=== PATIENT | female | born 1975 | race Caucasian/White ===

== ENCOUNTER → 2018-09-09 14:15 | Outpatient (CLI) | payer MEDICAID, SELFPAY ==
--- NOTE | 2018-09-09 11:30 | EMB_PTH ---
PATIENT: SCOTTIE CHOUDHARY LOC: [facility] U#:[id number] AGE/SX: 50/F ROOM: RE09/09/[address]: Dr. Corina Lott MD : 1975 BED: DIS: SPEC #: [id number] RECD: 09/09/18 14:37 STATUS: EVANGELINA RELoren #: [id number] PAULIE: 09/09/18 11:[address]: Corina Castellanos DEPT: SURGICAL PATHOLOGY RECD BY: Joel Han ENTERED: 09/09/18 14:37 SP TYPE: ENDOM BX/C KATERINA DR: Dr. Nataliia Goldstein MD Tissues: Endometrium, NOS Procedures: Surgery Specimen Level IV HEADER OPERATION: Endometrial biopsy PRE-OP DIAGNOSIS: N92.1; LMP 09/03/18 TISSUE SUBMITTED: Endometrial biopsy MICROSCOPIC DIAGNOSIS Endometrium, biopsy: Secretory endometrium. AM:faustino 09/10/18 MICROSCOPIC DESCRIPTION Slides are reviewed. GROSS DESCRIPTION Received is one container labeled with the patient's name and not further designated. The specimen consists of multiple irregular fragments of pink-velásquez soft tissue that in aggregate measure 2.5 x 2 x 0.2 cm. The specimen is totally submitted in one cassette. / AM:faustino 09/09/18 TC:5 CPT: 51134
[2018-09-12 11:13] LABS: HPV APTIMA, High Risk Negative (Negative)
--- OUTSIDE RECORDS SUMMARY | 2018-11-11 19:57 | XMS RPT_ITS | Summary of Care ---
:1975 Author Organization [facility] Address [address] [place] [address] Phone Care Team Providers Name Role Phone Nataliia Goldstein MD Primary Care Provider Unavailable Reason for Referral Medication Prior Authorization (Routine) Status Reason Specialty Diagnoses / Referred By Referred To Procedures Contact Contact Pending Review Yonas Lee MD [address] [phone] Transfer of Care (Routine) Status Reason Specialty Diagnoses / Referred By Referred To Procedures Contact Contact New Request Physical Therapy Diagnoses Irritable bowel syndrome with constipation Iron deficiency anemia, unspecified iron deficiency anemia type Yonas Lee MD [address] [phone] Scheduling Instructions [facility] [address] [facility], [address]nd [place] [address] Fax [facility] (Neck and Back Therapy) [address] [place] [address] FAX [facility] [address] [phone] FAX [facility] [address] [address] FAX [facility] [address] [place] [address] FAX [facility] [address] [address] FAX [facility] [address] [place], [place] [address] FAX [facility] [address] [place], [place] [address] FAX Radiology (Routine) Status Reason Specialty Diagnoses / Referred By Referred To Procedures Contact Contact New Request Diagnoses Irritable bowel syndrome with constipation Iron deficiency anemia, unspecified iron deficiency anemia type Jesus, Procedures CASE REQUEST - ENDOSCOPY MD Yonas [address] [place] [address] Reason for Visit Reason Comments New Patient anemia , chronic GI sx's Consultation (Routine) Status Reason Specialty Diagnoses / Procedures Referred By Contact Referred To Contact Closed Diagnoses Iron deficiency anemia, unspecified iron deficiency anemia type Irritable bowel syndrome with constipation Nataliia Goldstein System, Provider MD Not In [address] [place] [address] Encounter Details Date Type Department Care Team Description 09/02/2018 Office Visit Division of Jesus, Irritable bowel syndrome with constipation (Primary Dx); Gastroenterology and MD Yonas Iron deficiency anemia, unspecified iron deficiency anemia type Hepatology Upper [address] [facility] 3rd Floor [address] [place] [address] [address] [place] [address] Allergies No Known Allergiesas of this encounter Medications Prescription Sig. Disp. Refills Start Date End Date Status docusate (COLACE) 100 Take 1 capsule 100 capsule 11 12/10/2017 Active MG Cap by mouth 3 capsuleIndications: times daily as Irritable bowel needed. syndrome with constipation polyethylene glycol Take 17 g by 1 Bottle 11 12/10/2017 Active (MIRALAX) Powder mouth daily as powderIndications: needed. Irritable bowel syndrome with constipation Cholecalciferol 1 po one day a 5 capsule 11 12/16/2017 Active (MAXIMUM D3) 59737 week units CapIndications: Vitamin D deficiency ferrous sulfate 325 Take 325 mg by Active (65 Fe) MG Tab tablet mouth 3 times daily with meals. diclofenac EC 75 MG 1 po bid PRN 60 tablet 11 01/07/[address] tabletIndications: Pulmonary nodule, Vitamin D deficiency, Dorsalgia, Bilateral foot pain, Chronic pain of both shoulders, Tendonitis of both rotator cuffs, Osteoarthritis of both feet, unspecified osteoarthritis type, Spasm of thoracic back muscle, Bilateral calcaneal spurs, Leukopenia, unspecified type, Anemia, unspecified type, [facility] current use of non-steroidal anti-inflammatories (NSAID), Lung nodule Plecanatide (TRULANCE) Take 1 tablet 14 tablet 3 09/02/2018 09/16/2018 Active 3 MG Tab by mouth daily for 14 days. as of this encounter Active Problems Problem Noted Date Vitamin D deficiency 01/07/2018 Leukopenia 01/07/2018 Spasm of thoracic back muscle 01/07/2018 Pulmonary nodule 01/07/2018 Bilateral calcaneal spurs 01/07/2018 Bilateral foot pain 01/07/2018 Fatigue 12/16/2017 Disorder of bone and cartilage 12/16/2017 [facility] current use of non-steroidal anti-inflammatories (NSAID) 12/16/2017 Dorsalgia 12/16/2017 Chronic pain of both shoulders 12/16/2017 Tendonitis of both rotator cuffs 12/16/2017 Osteoarthritis of both feet 12/16/2017 Anemia 10/14/2017 Anxiety 10/14/2017 Insomnia 10/14/2017 Joint pain 10/14/2017 Social History Tobacco Use Types Packs/Day Years Used Date Never Smoker Smokeless Tobacco: Never Used Alcohol Use Drinks/Week oz/Week Comments No Sex Assigned at Date Recorded Not on file as of this encounter Last Filed Vital Signs Vital Sign Reading Time Taken Blood Pressure 94/64 09/02/2018 8:14 AM EST Pulse 71 09/02/2018 8:14 AM EST Temperature - - Respiratory Rate - - Oxygen Saturation 99% 09/02/2018 8:14 AM EST Inhaled Oxygen Concentration - - Weight 69 kg (152 lb 3.2 oz) 09/02/2018 8:14 AM EST Height 170.2 cm (5' 7) 09/02/2018 8:14 AM EST Body Mass Index 23.84 09/02/2018 8:14 AM EST in this encounter Functional Status Functional Status Response Date of Assessment Are you deaf or do you have serious difficulty hearing? No 01/07/2018 Are you blind or do you have serious difficulty seeing, No 01/07/2018 even when wearing glasses? Do you have serious difficulty walking or climbing stairs Yes 01/07/2018 (5 years or older)? Do you have difficulty dressing or bathing (5 yrs or No 01/07/2018 older)? Because of a physical, mental, or emotional condition, do No 01/07/2018 you have difficulty doing errands alone such as visiting a doctor's office or shopping (5 yrs or older)? Cognitive Status Response Date of Assessment Because of a physical, mental, or emotional condition, do No 01/07/2018 you have serious difficulty concentrating, remembering, or making decisions (5 yrs or older)? as of this encounter Instructions Patient Instructions - Yonas Lee MD - 09/02/2018 8:54 AM EST [email or web address] in this encounter Progress Notes Yonas Lee MD - 09/02/2018 8:00 AM ESTFormatting of this note may be different from the original. Division of Gastroenterology, Hepatology and Nutrition Referring provider: Nataliia Goldstein MD PCP: Nataliia Goldstein Date of visit: 09/02/18 [facility] Reason for visit: CHAVEZ, IBS Lyla Bradley is a very pleasant 43 y.o. year old female here to establish care. She is accompanied by her . She has a long standing history of constipation, bloating, diarrhea for many years. Seen @[facility] in the past, no further workup done, no colonoscopy, no EGD. Was diagnosed with IBS. Linze ssSince then symptoms have worsened. Tried different types of food without real improvement. Early satiety. Fullness, unable to pass gas. Bowel habits: Can go without a bowel movement for days, then times days with regular bowel movements. During time of menses symptoms are worse. Now found to be anemic. On iron therapy now. Regular diet at this point. Heavy menses for the last 4years, has 2 children, not seen an OBGYN for some time. Had colonoscopy/EGD in 1998, which was normal. Her GI issues are affecting her private, social and professional life. Lost about 20-30 lbs. Painfulintercourse, affects their love life. FH: No CRC, PDAV, GC SH: Tob - neg ETOH - neg PAST MEDICAL HISTORY PMH: Past Medical History: Diagnosis Date ??? Anemia ??? Insomnia ??? Pulmonary nodule PSH: Past Surgical History: Procedure Laterality Date ??? WISDOM TEETH EXTRACTION Allergies: She has No Known Allergies. Medications: Current Outpatient Prescriptions Medication Sig ??? Cholecalciferol (MAXIMUM D3) 67429 units Cap 1 po one day a week ??? diclofenac EC [address] tablet 1 po bid PRN ??? docusate (COLACE) 100 MG Cap capsule Take 1 capsule by mouth 3 times daily as needed. ??? ferrous sulfate 325 (65 Fe) MG Tab tablet Take 325 mg by mouth 3 times daily with meals. ??? polyethylene glycol (MIRALAX) Powder powder Take 17 g by mouth daily as needed. SOCIAL AND FAMILY HISTORY Social History: She reports that she has never smoked. She has never used smokeless tobacco. She reports that she does not drink alcohol or use drugs. Family History: Her family history includes Cancer- Other in her father; No known problems in her brother, brother, and mother. REVIEW OF SYSTEMS Negative for unintentional weight loss, skin rash, joint aches. PHYSICAL EXAM: A female child development consultant for the physical examination was offered to the patient but patient declined. Wt Readings from Last 10 Encounters: 04/24/18 68 kg (150 lb) 01/28/18 67.5 kg (148 lb 12.8 oz) 01/07/18 66.2 kg (146 lb) 01/02/18 66.7 kg (147 lb) 12/16/17 67.5 kg (148 lb 12.8 oz) 12/10/17 67 kg (147 lb 9.6 oz) 10/15/17 67.1 kg (148 lb) 10/14/17 60.1 kg (132 lb 6.4 oz) Vital Signs: There were no vitals taken for this visit. General: The patient is a 43 y.o. female in NAD HEENT: no scleral icterus, oral pharynx clear without exudate, MMM Lungs: CTAB, no respiratory distress Heart: RRR Abdomen: Soft, nontender, NABS Extremities: Warm and dry, well perfused Neuro: grossly intact, alert and oriented Psych: Appropriate affect, pleasant ASSESSMENT/MEDICAL DECISION MAKING/RECOMMENDATIONS Assessment/Plan: 43 y.o. female presenting with: IMPRESSION: 1. IBS-C 2. CHAVEZ IBS-C - this is most likely the working diagnosis but given new onset of CHAVEZ, I would favor to further evaluate via EGD/COLONOSCOPY at which point we will evaluate for celiac disease even though she had negative TTG back in 2013, H.pylori, IBD. In addition, would like to start her on scheduled Miralax, Metamucil and trial of newer motility agents, e.g. Trulance (she was on Linzess in the past withoutmuch improvement). I think she would also benefit from evaluation at our pelvic floor clinic. Next step would be: Amitriptyline Anorectal manometry CHAVEZ - will await endoscopic evaluation; also recommend OBGYN evaluation; unless true CHAVEZ and no OBGYN source, no capsule endoscopy needed. Yonas Lee MD [facility], 09/02/18 CC: Nataliia Goldstein [address] [place] [phone] in this encounter Plan of Treatment Upcoming Encounters Date Type Specialty Care Team Description 12/02/2018 Office Visit Gastroenterology Yonas Lee MD [address] [place] [address] Scheduled Tests Name Priority Associated Diagnoses Order Schedule XR COLON TRANSIT STUDY Routine Irritable bowel syndrome Expected: 09/02/2018, with constipation Expires: 09/02/2019 Iron deficiency anemia, unspecified iron deficiency anemia type Scheduled Referrals Name Priority Associated Diagnoses Order Schedule AMB REFERRAL TO PHYSICAL Routine Irritable bowel syndrome with Ordered: 09/02/2018 THERAPY constipation Iron deficiency anemia, unspecified iron deficiency anemia type Health Maintenance Due Date Last Done Comments HIV SCREENING DISCUSSION 1987 TETANUS 01/03/1992 TDAP (ADULT) 1993 LIPID SCREENING 2014 PAP SMEAR DISCUSSION 03/09/2015 03/09/2014 MAMMOGRAM SCREENING DISCUSSION 03/10/2015 03/10/2014 INFLUENZA VACCINE (#1) 2018 as of this encounter Procedures Procedure Name Priority Date/Time Associated Diagnosis Comments CASE REQUEST - Routine 09/02/2018 8:53 AM Irritable bowel ENDOSCOPY EST syndrome with constipation Iron deficiency anemia, unspecified iron deficiency anemia type in this encounter Results TSH (09/02/2018 9:13 AM) TSH, HIGH-SENSITIVITY 3.088 0.550 - 4.780 uIU/mL LAB, [facility] Performing Organization Address [facility] Phone Number LAB, [facility], [address] [place] [address] FERRITIN (09/02/2018 9:13 AM) FERRITIN 10 10 - 291 ng/mL [facility], [facility] Performing Organization Address [facility] Phone Number LAB, [facility], [address] [place] [address] IRON/IRON BINDING/TRANSFERRIN (09/02/2018 9:13 AM) IRON 77 40 - 174 mcg/dL [facility], [facility] TOTAL IRON BINDING 542 298 - 596 mcg/dL [facility] IRON SATURATION 14 (L) 20 - 55 % [facility], [facility] TRANSFERRIN 364 200 - 400 mg/dL LAB, [facility] Performing Organization Address City/[facility] Phone Number LAB, [facility], [address] [place] [address] CBC, EDIF, PLATELET (09/02/2018 9:13 AM) WBC (WHITE BLOOD COUNT) 4.63 3.99 - 11.19 K/uL [facility] RBC 4.39 3.91 - 5.04 M/uL [facility] HEMOGLOBIN (HGB) 13.4 11.4 - 15.2 g/dL [facility], [facility] HEMATOCRIT (HCT) 40.1 34.9 - 44.3 % [facility], [facility] MEAN CELL VOLUME 91.3 79.6 - 97.7 fL LAB, [facility] Mean Cell HGB 30.5 25.9 - 33.9 pg LAB, [facility] MEAN CELL HGB CONCENTRATION 33.4 31.4 - 35.9 g/dL LAB, [facility] RBC DISTRIBUTION 13.3 10.8 - 14.9 % LAB[facility] PLATELET COUNT 248 150 - 393 K/uL LAB, [facility] MEAN PLATELET VOLUME 10.0 8.5 - 12.2 fL LAB, [facility] RBC, NUCLEATED 0.0 0.0 - 0.2 /100 WBC LAB, [facility] DIFFERENTIAL TYPE Electronic Differential LAB, [facility] IMMATURE GRANS% 0.2 % [facility] NEUTROPHIL SEGMENTED 59.5 % [facility] LYMPHOCYTES 31.5 % [facility] MONOCYTE 7.1 % [facility] EOSINOPHIL 1.5 % [facility] BASOPHIL 0.2 % [facility] IMMATURE GRANS ABSOLUTE <0.04 0.00 - 0.08 K/uL LAB, [facility] SEGS + Bands, Absolute 2.75 1.64 - 7.28 K/uL [facility] LYMPHOCYTES, ABSOLUTE 1.46 1.16 - 3.51 K/uL LAB[facility] MONOCYTES, ABSOLUTE 0.33 0.22 - 0.87 K/uL LAB, [facility] EOSINOPHILS, ABSOLUTE 0.07 0.00 - 0.42 K/uL LAB, [facility] BASOPHILS, ABSOLUTE <0.04 0.00 - 0.15 K/uL LAB, [facility] Performing Organization Address City/State/Zipcode Phone Number LAB, [facility], [address] [place] [address] in this encounter Visit Diagnoses Diagnosis Irritable bowel syndrome with constipation - Primary Irritable bowel syndrome Iron deficiency anemia, unspecified iron deficiency anemia type
--- OUTSIDE RECORDS SUMMARY | 2018-11-11 19:57 | XMS RPT_ITS | Summary of Care ---
:1975 Author Organization [facility] Address [address] [place] [address] Phone Care Team Providers Name Role Phone Nataliia Goldstein MD Primary Care Provider Unavailable Encounter Details Date Type Department Care Team Description 09/02/2018 Letter (Out) [facility] [address] [place] [address] Allergies No Known Allergiesas of this encounter [...] 5 capsule 11 12/16/2017 Active (MAXIMUM D3) 24816 week units CapIndications: Vitamin D deficiency ferrous sulfate 325 Take 325 mg by Active (65 Fe) MG Tab tablet mouth 3 times daily with meals. 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 as of this encounter Plan of Treatment Upcoming Encounters Date Type Specialty Care Team Description 12/02/2018 Office Visit Gastroenterology Yonas Lee MD [address] [place], [place] [address] [place] [address] Health Maintenance Due Date Last Done Comments HIV SCREENING DISCUSSION 1987 TETANUS 01/03/1992 TDAP (ADULT) 1993 LIPID SCREENING 2014 PAP SMEAR DISCUSSION 03/09/2015 03/09/2014 MAMMOGRAM SCREENING DISCUSSION 03/10/2015 03/10/2014 INFLUENZA VACCINE (#1) 2018 as of this encounter
--- OUTSIDE RECORDS SUMMARY | 2018-11-11 19:57 | XMS RPT_ITS | Summary of Care ---
:1975 Author Organization [facility] Address [address] [place] [address] Care Team Providers Name Role Phone Nataliia Goldstein MD Primary Care Provider Reason for Referral Evaluate and Treat (Routine) Status Reason Specialty Diagnoses / Referred By Referred To Procedures Contact Contact Closed Otolaryngology Diagnoses Nonspecific abnormal results of thyroid function study Matt Miller Mykola Grant Jr., DO Ofelia MD [address] [place] [address] Phone: [place], [place] [phone] Reason for Visit Reason Comments Thyroid Problem ct showed abnormal thyroid Evaluate and Treat (Routine) Status Reason Specialty Diagnoses / Referred By Referred To Procedures Contact Contact Closed Otolaryngology Diagnoses Nonspecific abnormal results of thyroid function study Matt Miller Mykola Grant Jr., DO Olekseyovich, MD [address] [address] Phone: [place], [place] [phone] Encounter Details Date Type Department Care Team Description 04/25/2018 Office Visit [facility] Ear, Nose Matt Miller Jr., DO [address] [place] [address] [phone] Multinodular goiter (nontoxic) (Primary Dx); and [facility] Juan José Tovar MD [address] [place] [address] [phone] Nonspecific abnormal results of thyroid function study; [address] Sore throat; Medical [place] [address] Allergies No Known Allergiesas of this encounter Medications Prescription Sig. Disp. Refills Start Date End Date Status docusate sodium Take 100 mg by Active (COLACE) 100 MG mouth 3 (three) capsule times a day as needed for constipation. ferrous gluconate Take 324 mg by Active (FERGON) 324 MG mouth daily with tablet breakfast. omeprazole (PRILOSEC) Take 1 (one) 30 capsule 5 04/25/2018 05/25/2018 Active 40 MG capsule (40 mg capsuleIndications: total) by mouth Sore throat, daily. Dysphasia ranitidine (ZANTAC) Take 1 (one) 30 tablet 5 04/25/2018 04/25/2019 Active 150 MG tablet (150 mg tabletIndications: total) by mouth Sore throat, nightly. Dysphasia as of this encounter Social History Tobacco Use Types Packs/Day Years Used Date Never Smoker Smokeless Tobacco: Never Used Alcohol Use Drinks/Week oz/Week Comments No Sex Assigned at Date Recorded Not on file as of this encounter Last Filed Vital Signs Vital Sign Reading Time Taken Blood Pressure 110/72 04/25/2018 9:06 AM EDT Pulse 75 04/25/2018 9:06 AM EDT Temperature - - Respiratory Rate - - Oxygen Saturation 98% 04/25/2018 9:06 AM EDT Inhaled Oxygen Concentration - - Weight 68.4 kg (150 lb 11.2 oz) 04/25/2018 9:06 AM EDT Height - - Body Mass Index - - in this encounter Instructions Patient Instructions - Juan José Tovar MD - 04/25/2018 10:06 AM EDTFormatting of this note may be different from the original. Thyroid Nodules: Care Instructions Your Care Instructions Thyroid nodules are growths or lumps in the thyroid gland. Your thyroid is in the front of your neck. It controls how your body uses energy. You may have tests to see if the nodule is caused by cancer. Most nodules aren't cancer and don't cause problems. Many don't even need treatment. If you do have cancer, it can usually be cured. Treatment will probably include surgery. You may also get radioactive iodine treatment. If your thyroid can't make thyroid hormone after treatment, you can take a pill every day to replace the hormone. Follow-up care is a garcia part of your treatment and safety. Be sure to make and go to all appointments, and call your doctor if you are having problems. It's also a good idea to know your test results and keep a list of the medicines you take. How can you care for yourself at home? ?? Be safe with medicines. If you take thyroid hormone medicine: ?? Take it exactly as prescribed. Call your doctor if you think you are having a problem with your medicine. If you take the right amount and don't skip doses, you probably won't have side effects. ?? Do not take it with calcium, vitamins, or iron. ?? Try not to miss a dose. ?? Do not take extra doses. This will not help you get better any faster. It may also cause side effects. ?? Tell your doctor about any medicines you take. This includes rqnk-mtq-pqxglyo medicines. ?? Wear a medical alert bracelet or necklace that says you take thyroid hormones. You can buy these at most drugstores. When should you call for help? Call 911 anytime you think you may need emergency care. For example, call if: ? ?? You lose consciousness. ?Call your doctor now or seek immediate medical care if: ? ?? You have shortness of breath. ?Watch closely for changes in your health, and be sure to contact your doctor if: ? ?? You have pain in your neck, jaw, or ear. ? ?? You have problems swallowing. ? ?? You feel weak and tired. ? ?? You have nervousness, a fast heartbeat, hand tremors, problems sleeping, increased sweating, and weight loss. ? ?? You do not feel better even though you are taking your medicine. Where can you learn more? Log into your personal health record on https://[employer] and enter E753 in the Education box to learn more about Thyroid Nodules: Care Instructions. Current as of: February 07, 2017 Content Version: 11.6 ?? 2356-8493 [email or web address]. Care instructions adapted under license by your healthcare professional. If you have questions about a medical condition or this instruction, always ask your healthcare professional. [email or web address] disclaims any warranty or liability for your use of this information. Gastroesophageal Reflux Disease (GERD): Care Instructions Your Care Instructions Gastroesophageal reflux disease (GERD) is the backward flow of stomach acid into the esophagus. The esophagus is the tube that leads from your throat to your stomach. A one-way valve prevents the stomach acid from moving up into this tube. When you have GERD, this valve does not close tightly enough. If you have mild GERD symptoms including heartburn, you may be able to control the problem with antacids or gyvh-nwx-kfayxjo medicine. Changing your diet, losing weight, and making other lifestyle changes can also help reduce symptoms. Follow-up care is a garcia part of your treatment and safety. Be sure to make and go to all appointments, and call your doctor if you are having problems. It's also a good idea to know your test results and keep a list of the medicines you take. How can you care for yourself at home? ?? Take your medicines exactly as prescribed. Call your doctor if you think you are having a problemwith your medicine. ?? Your doctor may recommend meht-oyx-qufydka medicine. For mild or occasional indigestion, antacids, such as Tums, Gaviscon, Mylanta, or Maalox, may help. Your doctor also may recommend xnop-pzj-knclnvz acid reducers, such as Pepcid AC, Tagamet HB, Zantac 75, or Prilosec. Read and follow all instructions on the label. If you use these medicines often, talk with your doctor. ?? Change your eating habits. ?? It's best to eat several small meals instead of two or three large meals. ?? After you eat, wait 2 to 3 hours before you lie down. ?? Chocolate, mint, and alcohol can make GERD worse. ?? Spicy foods, foods that have a lot of acid (like tomatoes and oranges), and coffee can make GERD symptoms worse in some people. If your symptoms are worse after you eat a certain food, you may want to stop eating that food to see if your symptoms get better. ?? Do not smoke or chew tobacco. Smoking can make GERD worse. If you need help quitting, talk to your doctor about stop-smoking programs and medicines. These can increase your chances of quitting for good. ?? If you have GERD symptoms at night, raise the head of your bed 6 to 8 inches by putting the frameon blocks or placing a foam wedge under the head of your mattress. (Adding extra pillows does not work.) ?? Do not wear tight clothing around your middle. ?? Lose weight if you need to. Losing just 5 to 10 pounds can help. When should you call for help? Call your doctor now or seek immediate medical care if: ? ?? You have new or different belly pain. ? ?? Your stools are black and tarlike or have streaks of blood. ?Watch closely for changes in your health, and be sure to contact your doctor if: ? ?? Your symptoms have not improved after 2 days. ? ?? Food seems to catch in your throat or chest. Where can you learn more? Log into your personal health record on https://[employer] and enter T927 in the Education box to learn more about Gastroesophageal Reflux Disease (GERD): Care Instructions. Current as of: December 28, 2016 Content Version: 11.6 ?? [id number] [employer]. Care instructions adapted under license by your healthcare professional. If you have questions about a medical condition or this instruction, always ask your healthcare professional. [employer] disclaims any warranty or liability for your use of this information. in this encounter Progress Notes Juan José Tovar MD - 04/25/2018 10:07 AM EDTFormatting of this note may be different from the original. Subjective: Patient ID: Lyla Bradley is a 43 y.o. female. Chief Complaint Patient presents with ??? Thyroid Problem ct showed abnormal thyroid HPI kind referral for my evaluation due to incidental finding of thyroid abnormal images. Reportedly, patient had CT scan of the shoulders which had detected multiple thyroid nodules in the right thyroid lobe. My consultation was requested. Patient denies associated shortness of breath, cough, hemoptysis but describes this pain deep in the throat on the ipsilateral with thyroid nodules area, getting worse with speaking not associated with significant difficulties to swallow but certain amount of discomfort upon swallowing is also present. Patient denies associated weight loss or constitutional symptoms. She is not aware about any family history of head and neck and specifically thyroid canceror problems. Patient had no low dose radiation exposure. Patient had 2 pregnancies and admits to some typical worsening of the heartburns during the but is currently not on any medications for GERD. The following portions of the patient's history were reviewed and updated as appropriate: allergies,current medications, past family history, past medical history, past social history, past surgical history and problem list. Review of Systems Constitutional: Negative. Negative for activity change, appetite change, chills, diaphoresis, fatigue, fever and unexpected weight change. HENT: Positive for sore throat, trouble swallowing and voice change. Negative for congestion, dentalproblem, drooling, ear discharge, ear pain, facial swelling, hearing loss, mouth sores, nosebleeds, postnasal drip, rhinorrhea, sinus pain, sinus pressure, sneezing and tinnitus. Eyes: Negative. Negative for photophobia, pain, discharge, redness, itching and visual disturbance. Respiratory: Negative. Negative for apnea, cough, choking, chest tightness, shortness of breath, wheezing and stridor. Cardiovascular: Negative. Negative for chest pain, palpitations and leg swelling. Gastrointestinal: Negative. Negative for abdominal distention, abdominal pain, anal bleeding, bloodin stool, constipation, diarrhea, nausea and rectal pain. Endocrine: Negative for cold intolerance and heat intolerance. Genitourinary: Negative. Musculoskeletal: Negative. Negative for arthralgias, gait problem, neck pain and neck stiffness. Skin: Negative. Negative for color change, pallor, rash and wound. Allergic/Immunologic: Negative for environmental allergies, food allergies and immunocompromised state. Neurological: Negative for dizziness, tremors, seizures, syncope, facial asymmetry, speech difficulty, weakness, light-headedness, numbness and headaches. Hematological: Negative for adenopathy. Does not bruise/bleed easily. Psychiatric/Behavioral: Negative. Objective: BP 110/72 Pulse 75 Wt 68.4 kg (150 lb 11.2 oz) SpO2 98% Physical Exam Constitutional: She is oriented to person, place, and time. She appears well- developed and well-nourished. No distress. HENT: Head: Normocephalic and atraumatic. Head is without abrasion, without contusion and without laceration. Right Ear: Tympanic membrane, external ear and ear canal normal. No drainage, swelling or tenderness. No mastoid tenderness. Tympanic membrane is not perforated. Tympanic membrane mobility is normal. No middle ear effusion. No decreased hearing is noted. Left Ear: Tympanic membrane and external ear normal. No drainage, swelling or tenderness. No mastoidtenderness. Tympanic membrane is not perforated. Tympanic membrane mobility is normal. No middle ear effusion. No decreased hearing is noted. Nose: No mucosal edema, rhinorrhea, nose lacerations, sinus tenderness, nasal deformity, septal deviation or nasal septal hematoma. No epistaxis. No foreign bodies. Right sinus exhibits no maxillary sinus tenderness and no frontal sinus tenderness. Left sinus exhibits no maxillary sinus tenderness and no frontal sinus tenderness. Mouth/Throat: Uvula is midline, oropharynx is clear and moist and mucous membranes are normal. She does not have dentures. No oral lesions. No trismus in the jaw. Normal dentition. No dental abscesses,uvula swelling, lacerations or dental caries. No oropharyngeal exudate, posterior oropharyngeal edema, posterior oropharyngeal erythema or tonsillar abscesses. Eyes: Pupils are equal, round, and reactive to light. Conjunctivae and EOM are normal. Right eye exhibits no discharge. Left eye exhibits no discharge. No scleral icterus. Neck: Trachea normal, normal range of motion and phonation normal. Neck supple. No JVD present. No tracheal deviation present. Thyroid mass and thyromegaly present. Cardiovascular: Normal rate, regular rhythm, normal heart sounds and intact distal pulses. Pulmonary/Chest: No stridor. No respiratory distress. She has no wheezes. She has no rales. She exhibits no tenderness. Abdominal: Soft. Bowel sounds are normal. She exhibits no distension. There is no tenderness. Musculoskeletal: Normal range of motion. Lymphadenopathy: She has no cervical adenopathy. Right cervical: No superficial cervical, no deep cervical and no posterior cervical adenopathy present. Left cervical: No superficial cervical, no deep cervical and no posterior cervical adenopathy present. Neurological: She is alert and oriented to person, place, and time. No cranial nerve deficit. Coordination normal. Skin: Skin is warm and dry. No rash noted. She is not diaphoretic. No erythema. Psychiatric: She has a normal mood and affect. Her behavior is normal. Judgment and thought content normal. Assessment/Plan: Focused but thorough clinical examination today confirmed palpable multi nodularityin the right thyroid lobe, normal thyroid function tests and the CT scan images consistent with described abnormality. I had ordered thyroid ultrasound to delineate the structure and size of the CT scan described and noticeable right thyroid lobe nodules. Patient also demonstrates symptoms which arerather associated with GERD and therefore instructions and prescriptions for Prilosec 40 mg to be taken p.o. on empty stomach in the morning and Zantac 150 mg p.o. to be taken at night as the diagnostic trial were provided. All patient's questions were answered appropriately to the level of her satisfaction. She had expressed comprehensive understanding and will follow up with me for evaluation with office-based endoscopy in [address](R) 1. Multinodular goiter (nontoxic) NON-TOXIC MULTINODULAR GOITER 2. Nonspecific abnormal results of thyroid function study THYROID FUNCTION TESTS ABNORMAL Ambulatory referral to ENT 3. Sore throat SORE THROAT SYMPTOM 4. Dysphasia DYSPHASIA No orders of the defined types were placed in this encounter. in this encounter Plan of Treatment Upcoming Encounters Date Type Specialty Care Team Description 06/02/2018 Office Visit Otolaryngology Juan José Tovar MD [address] [facility] [address] [place] [id number] Health Maintenance Due Date Last Done Comments PAP SMEAR 1975 TETANUS EVERY 10 YR 1975 SEQUENTIAL INFLUENZA VACCINE (#1) 2018 as of this encounter Visit Diagnoses Diagnosis Multinodular goiter (nontoxic) - Primary Nontoxic multinodular goiter Nonspecific abnormal results of thyroid function study Sore throat Acute pharyngitis Dysphasia Other speech disturbance
--- OUTSIDE RECORDS SUMMARY | 2018-11-11 19:57 | XMS RPT_ITS | Summary of Care ---
:1975 Author Organization [facility] Address [address] [place] [address] Care Team Providers Name Role Phone Nataliia Goldstein MD Primary Care Provider Encounter Details Date Type Department Care Team Description 05/03/2018 Hospital Encounter [facility] Juan José Tovar MD [place], [place] [address] [phone] [facility] [place] [facility] [address] [place], [place] [id number] Allergies No Known Allergiesas of this encounter [...] Not on file as of this encounter Plan of Treatment Upcoming Encounters Date Type Specialty Care Team Description 06/02/2018 Office Visit Otolaryngology Juan José Tovar MD [address] [facility] [place] [address] [place], [place] [id number] Health Maintenance Due Date Last Done Comments PAP SMEAR 1975 TETANUS EVERY 10 YR 1975 SEQUENTIAL INFLUENZA VACCINE (#1) 2018 as of this encounter
--- OUTSIDE RECORDS SUMMARY | 2018-11-11 19:58 | XMS RPT_ITS ---
:1975 Author Organization OHIP Care Team Providers Name Role Phone SHANNON RUDOLPH Attending Unavailable GOLDSTEIN, NOAH M Referring Unavailable GOLDSTEIN, NOAH M Primary Care Unavailable SHANNON RUDOLPH Attending Unavailable GLODSTEIN, NOAH M Referring Unavailable GOLDSTEIN, NOAH M Primary Care Unavailable Guy, Dr. Brady Fuentes Admitting Unavailable PrykhodkDr. Brady fuentes Attending Unavailable BRADY IBLLS Attending Unavailable MANA OLVERA Primary Care Unavailable MANA OLVERA Admitting Unavailable BRADY BILLS Attending Unavailable MANA OLVERA Referring Unavailable GOLDSTEIN, NOAHALEJANDRA MARSHALL Primary Care Unavailable GOLDSTEIN, NOAH M Attending Unavailable SELF, SELF Referring Unavailable GOLDSTEIN, NOAH M Attending Unavailable SELF, SELF Referring Unavailable WADE MCNEAL, MANA Attending Unavailable GOLDSTEIN, NOAH M Referring Unavailable WADE MCNEAL, MANA Attending Unavailable GOLDSTEIN, NOAH M Referring Unavailable VINICIOBROTY MCNEAL, MANA Attending Unavailable STAINBROOK JR., MANA Referring Unavailable STAINBROOK JR., MANA Attending Unavailable STAINBROOK JR., MANA Referring Unavailable STAINBROOK JR., MANA Attending Unavailable STAINBROOK JR., MANA Referring Unavailable STAINBROOK JR., MANA Attending Unavailable STAINBROOK JR., MANA Referring Unavailable STAINBROOK JR., MANA Attending Unavailable STAINBROOK JR., MANA Referring Unavailable GOLDSTEIN, NOAH M Attending Unavailable SELF, SELF Referring Unavailable STAINBROOK JR., MANA Attending Unavailable GOLDSTEIN, NOAH M Referring Unavailable MAYO OLIVA E Attending Unavailable STAINBROOK JR., MANA Referring Unavailable STAINBROOK JR., MANA Attending Unavailable STAINBROOK JR., MANA Referring Unavailable KARISHMA LOPEZ Attending Unavailable STAINBROOK JR., MANA Referring Unavailable Phipps-Oren, Summer Attending Unavailable Phipps-Oren, Summer Referring Unavailable Goldstein, Noah Primary Care Unavailable Phipps-Oren, Summer Attending Unavailable PROBLEMS PROBLEMS DATE TYPE CONDITION / CODE ATTENDING STATUS SOURCE Unknown N92.1 - Excessive Phipps-Oren, Active [facility] 9 and frequent [facility] menstruation with Hospital irregular cycle / Repository N92.1(ICD-10) Admitting New Patient / RONNI, Active [facility] 9 diagnosis [id number]() [facility] Repository Admitting Abnormal results of PRYKHODKO, BRADY Active [facility] 8 diagnosis thyroid function OLEKSEYOVIC Three studies / Repository R94.6(ICD-10) Admitting Pulmonary Nodule / KARISHMA LOPEZ Active [facility] 8 Diagnosis 252() [facility] [place] Admitting Consult / 119() KARISHMA LOPEZ [facility] 8 Diagnosis [place] Rep[place] Admitting Solitary pulmonary STAINBROOK JR., Active [facility] 8 Diagnosis nodule / [facility] [place] R91.1(ICD-10) Repository Admitting Pain in right foot / STAINBROOK JR., Active [facility] 8 Diagnosis M79.671(ICD-10) [facility] [place] Admitting Pain in left foot / STAINBROOK JR., Active [facility] 8 Diagnosis M79.672(ICD-10) [facility] [place] Admitting Calcaneal spur, STAINBROOK JR., Active [facility] 8 Diagnosis right foot / [facility] [place] M77.31(ICD-10) Repository Admitting Calcaneal spur, left STAINBROOK JR., Active [facility] 8 Diagnosis foot / [facility] [place] M77.32(ICD-10) Repository Admitting Muscle spasm of back STAINBROOK JR., Active [facility] 8 Diagnosis / M62.830(ICD-10) [facility] [place] Admitting Decreased white STAINBROOK JR., Active [facility] 8 Diagnosis blood cell count, [facility] [place] unspecified / Repository D72.819(ICD-10) Admitting Vitamin D STAINBROOK JR., Active [facility] 8 Diagnosis deficiency, [facility] [place] unspecified / Repository E55.9(ICD-10) Admitting Anemia, unspecified STAINBROOK JR., Active [facility] 8 Diagnosis / D64.9(ICD-10) [facility] [place] Admitting Joint Pain / STAINBROOK JR., Active [facility] 8 Diagnosis 582267() [facility] [place] Admitting Results / 95() NOAH GOLDSTEIN [employer] 8 Diagnosis [place] Rep[place] Admitting Anemia / [id number]() NOAH GOLDSTEIN [employer] 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[facility] ankle and foot / Repository M19.072(ICD-10) Admitting Other shoulder STAINBROOK JR., Active [facility] 8 Diagnosis lesions, right [facility] / Repository M75.81(ICD-10) Admitting Other shoulder STAINBROOK JR., Active [facility] 8 Diagnosis lesions, left [facility] [place] / Repository M75.82(ICD-10) Admitting Pain in right STAINBROOK JR., Active [facility] 8 Diagnosis shoulder / [facility] [place] M25.511(ICD-10) Repository Admitting Other chronic pain / STAINBROOK JR., Active [facility] 8 Diagnosis G89.29(ICD-10) [facility] [place] Admitting Pain in left STAINBROOK JR., Active [facility] 8 Diagnosis shoulder / [facility] [place] M25.512(ICD-10) Repository Admitting Dorsalgia, STAINBROOK JR., Active [facility] 8 Diagnosis unspecified / [facility] [place] M54.9(ICD-10) Repository Admitting manager terminal (current) STAINBROOK JR., Active [facility] 8 Diagnosis use of non-steroidal [facility] [place] anti-inflammatories Repository (nsaid) / Z79.1(ICD-10) Admitting Disorder of bone, STAINBROOK JR., Active [facility] 8 Diagnosis unspecified / [facility] [place] M89.9(ICD-10) Repository Admitting Disorder of STAINBROOK JR., Active [facility] 8 Diagnosis cartilage, [facility] [place] unspecified / Repository M94.9(ICD-10) Admitting Other fatigue / STAINBROOK JR., Active [facility] 8 Diagnosis R53.83(ICD-10) [facility] [place] Admitting Constipation / NOAH GOLDSTEIN Mirta Active [facility] 8 Diagnosis 068465() [place] Rep[place] Admitting Fatigue / 46() YANDY NOAH M [facility] [facility] 8 Diagnosis [place] Rep[place]mitting Musculoskeletal Pain YANDYNOAH Active [facility] 8 Diagnosis / [id number]() [place] Rep[place] PROCEDURES PROCEDURES No Procedure Records FoundRESULTS RESULTS PROGESTERONE LEVEL Collected: 09/11/2018 Status: F Source: [place] 4:06 PM [facility] [place] TYPE CODE TESTS RESULT OUT OF REFERENCE UNITS RANGE LAB L509.4001 See Comment ng/mL Progesterone Normal 5.81 Result Comment: Progesterone Reference Table: UNITS Female: Follicular 0.15 - 1.40 ng/mL Luteal 3.34 - 25.56 ng/mL Mid-luteal 4.44 - 28.03 ng/mL Postmenopausal 0.0 - 0.73 ng/mL : 1st Trimester 11.22 - 90.00 ng/mL 2nd Trimester 25.55 - 89.40 ng/mL 3rd Trimester 48.40 -422.50 ng/mL Performed By: #### L509.4001 #### [facility] [address] [place], [address] ENDOMETRIAL BX/CURETTINGS Observed: 09/09/2018 Status: F Source: [place] 11:30 AM [facility] [place] Patient: SCOTTIE CHOUDHARY : 1975 (43/F) Acct Num: [id number] Phys: Vicente OLIVAREZ,Summer Unit Num: [id number] Loc: LABSPEC Specimen: [id number] Received: 09/09/181436 Spec Type: ENDOM BX/C TISSUES 1 TISSUES: Endometrium, NOS GROSS DESCRIPTION Received is one container labeled with the patient's name and not further designated. The specimen consists of multiple irregular fragments of pink-velásquez soft tissue that in aggregate measure 2.5 x 2 x 0.2 cm. The specimen is totally submitted in one cassette. / AM:faustino 09/09/18 TC:5 CPT: 80466 HEADER OPERATION: Endometrial biopsy PRE-OP DIAGNOSIS: N92.1; LMP 09/03/18 TISSUE SUBMITTED: Endometrial biopsy MICROSCOPIC DESCRIPTION Slides are reviewed. MICROSCOPIC DIAGNOSIS Endometrium, biopsy: Secretory endometrium. AM:faustino 09/10/18 Signed Greyson Schwartz, 09/10/18 <signature on file> Performed By: #### PEMB #### [facility] [address] [place], [address] PAP IG HPV APTIMA Collected: 09/09/2018 Status: F Source: [place] ,45 11:10 AM [facility] [place] Order Comment: CYTOLOGY INFORMATION: - CLINICAL INFORMATION: - DATE LMP/MENOPAUSE: 08/24/18 - COLLECTION VIAL: Thin Prep Vial - VP AD SALES WEST SOURCE: CERVICAL/ENDOCERVICAL - COLLECTION TECHNIQUE: BRUSH/SPATULA Specimen Comment: [id number] Specimen Comment: Source.............Cervix;Endocervix Specimen Comment: LMP / Prev Treat...IFR=[id number] Specimen Comment: No. of containers..01 ThinPrep Vial TYPE CODE TESTS RESULT OUT OF RANGE REFERENCE UNITS LAB L7400.0800 . Normal DIAGN Comment Result Comment: NEGATIVE FOR INTRAEPITHELIAL LESION OR MALIGNANCY. LAB L7400.0900 . Normal ADEQ Comment Result Comment: Satisfactory for evaluation. Endocervical and/or squamous metaplastic cells (endocervical component) are present. LAB L7400.1400 . Normal PERFORM Comment Result Comment: Lavonne Osborne, Vacuum Extractor Operator (ASCP) LAB L7400.2575 . Normal TEST METHOD Comment Result Comment: This liquid based ThinPrep(R) pap test was screened with the use of an image guided system. LAB L7400.2600 . Normal . COMM LAB L7400.2700 . Normal PAPSMR Comment Result Comment: The Pap smear is a screening test designed to aid in the detection of premalignant and malignant conditions of the uterine cervix. It is not a diagnostic procedure and should not be used as the sole means of detecting cervical cancer. Both false-positive and false-negative reports do occur. LAB L7400.2760 Negative Normal HPV APTIMA, Negative HR Result Comment: This test detects fourteen high-risk HPV types (16/18/31/33/35/39/45/ 51/52/56/58/59/66/68) without differentiation. Performed at: - [facility] [id number] Open Developer Operator: Hannah Jack MD, Phone: [phone] Performed at: =[facility] [id number] Open Developer Operator: Hannah Jack MD, Phone: [phone] Performed By: #### L7400.0280 #### [facility] (refer to report for specific site) refer to report for address and phone number CBC,PLATELET,DIFFERENTIAL - CCL Collected: Status: F Source: [facility] 09/02/2018 9:13 AM [facility] REPOSITORY TYPE CODE TESTS RESULT OUT OF REFERENCE UNITS RANGE LAB WBC 3.99-11.19 K/uL WBC Count 4.63 LAB RBC 3.91-5.04 M/uL RBC Count 4.39 LAB HGB 11.4-15.2 g/dL Hemoglobin 13.4 LAB HCT 34.9-44.3 % Hematocrit 40.1 LAB MCV 79.6-97.7 fL Mean Cell 91.3 Volume LAB MCH 25.9-33.9 pg Mean Cell 30.5 Hgb LAB MCHC 31.4-35.9 g/dL Mean Cell 33.4 Hgb Conc LAB RDW 10.8-14.9 % RBC 13.3 Distribution LAB PLT 150-393 K/uL Platelet 248 Count LAB MPV 8.5-12.2 fL Mean 10.0 Platelet Volume LAB NRBC 0.0-0.2 /100 WBC NUCLEATED 0.0 RBC LAB DTYPE Electronic DIFFERENTIAL TYPE Differential LAB IGRE % IMMATURE 0.2 GRANS % LAB SEGS % NEUTROPHIL 59.5 SEGMENTED LAB LYM % LYMPHOCYTE 31.5 % LAB MON % MONOCYTE % 7.1 LAB EOS % *EOSINOPHIL 1.5 % LAB BASO % BASOPHIL % 0.2 LAB IGABS 0.00-0.08 K/uL IMMATURE <0.04 GRANS ABSOLUTE LAB SBANS 1.64-7.28 K/uL SEGS + 2.75 Bands,Absolute LAB ALYM 1.16-3.51 K/uL Abs Lymph 1.46 LAB AMONO 0.22-0.87 K/uL Abs Meigs 0.33 LAB AEOS 0.00-0.42 K/uL Abs Eos 0.07 LAB ABASO 0.00-0.15 K/uL Abs Baso <0.04 Performed By: #### CBCDFC, IRBC, FERIB, TSH #### [facility] [address] [place] [address] [address] [place] [address] IRON*TIBC (TRANSFERRIN) Collected: 09/02/2018 Status: F Source: [facility] 9:13 AM [facility] REPOSITORY TYPE CODE TESTS RESULT OUT OF REFERENCE UNITS RANGE LAB IRON 40-174 mcg/dL Iron 77 LAB TIBC 298-596 mcg/dL Total Iron Binding Capacity 542 LAB IRONS 20-55 % Low *Iron*Saturation 14 LAB HARDIN 200-400 mg/dL Transferrin 364 Performed By: #### CBCDFC, IRBC, FERIB, TSH #### [facility] [address] [place] [address] [facility] [address] [place] [address] FERRITIN Collected: 09/02/2018 Status: F Source: [facility] 9:13 AM [facility] REPOSITORY TYPE CODE TESTS RESULT OUT OF RANGE REFERENCE UNITS LAB FERI 10-291 ng/mL *Ferritin 10 Performed By: #### CBCDFC, IRBC, FERIB, TSH #### [facility] [address] [place] [id number] [place] [address] [address] [place] [address] TSH, HIGH SENSITIVITY Collected: 09/02/2018 Status: F Source: [facility] 9:13 AM [facility] REPOSITORY TYPE CODE TESTS RESULT OUT OF REFERENCE UNITS RANGE LAB TSH 0.550-4.780 uIU/mL TSH, High Sensitivity 3.088 Performed By: #### CBCDFC, IRBC, FERIB, TSH #### [facility] [address] [place] [id number] [place] [address] [address] [place] [address] US THYROID Observed: 05/03/2018 Status: F Source: [facility] 11:42 AM [facility] REPOSITORY Final Report Accession No: [id number] Performed: May 03 2018 11:42AM Examination: US THYROID EXAMINATION: US THYROID [id number] CLINICAL HISTORY: 43 -year-old female with history of GOITER NONTOXIC COMPARISON: None available. TECHNIQUE: Real-time multiplanar grayscale images of the thyroid bed were obtained. FINDINGS: Right thyroid lobe is 5.6 x 1.7 x 1.2 cm. The left thyroid lobe measures 5.6 x 1.7 x 1.8 cm. The thyroid isthmus measures 3 mm. There are multiple colloid cysts seen bilaterally. Dominant lesion of the right mid thyroid measures 0.9 x 0.6 x 0.7 cm with comet tail artifact. Additional dominant cystic lesion inferior right thyroid lobe measures 1.3 x 0.8 x 1 cm. Macrocalcifications as well as echogenic foci peripherally suggesting colloid cyst. In the superior aspect of the right thyroid lobe posteriorly there is a 0.9 x 0.4 x 0.7 cm cystic lesion again with comet tail artifact. Within the left thyroid mid aspect posterior depth there is a 0.9 x 0.5 x 0.7cm cystic lesion with eccentric macrocalcifications versus colloid reflectors. IMPRESSION: Multinodular thyroid goiter with multiple colloid cysts. TI-RADS 1--Benign, No FNA advised. Interpreting Physician: KAMLA CARVALHO M.D. Trans: mmyers : cc: CT CHEST WITHOUT Observed: 02/06/2018 Status: F Source: [facility] [place] 11:04 AM [facility] [place]POS[place] EXAM: CT CHEST WITHOUT CONTRAST CLINICAL STATEMENT: Lung nodule. COMPARISON: X-ray right shoulder 12/16/2017. TECHNIQUE: CT examination of the chest?without IV contrast. Coronal and sagittal reformations were performed. ? Dose reduction techniques were achieved by using automated exposure control and/or adjustment of mA and/or kV according to patient size and/or use of iterative reconstruction technique. FINDINGS: There is heterogeneous density of the thyroid without a well-defined nodule. No enlarged supraclavicular or axillary lymphadenopathy. No enlarged mediastinal or hilar lymphadenopathy. There are a few partially calcified right hilar and mediastinal nodes. The aorta and central pulmonary arteries are normal in caliber. The heart size is within normal limits. No pericardial effusion. The trachea and central airways are patent. There is a calcified 6 mm nodule in the lateral superior segment of the right lower lobe corresponding to finding on prior radiographs. No suspicious nodules, masses, or areas of consolidation. No pneumothorax or pleural effusion. No acute abnormality in the upper abdomen. No acute osseous abnormalities. IMPRESSION: Calcified nodule in the right lung consistent with post inflammatory granuloma. Associated calcified hilar and mediastinal lymph nodes. No acute CT abnormality noted within the chest. XR FOOT LEFT 3 Observed: 12/16/2017 Status: F Source: [facility] VIE[place] 8:29 AM [facility] [place] PROCEDURE: RIGHT AND LEFT FOOT RADIOGRAPHS, 12/16/2017 8:29 AM CLINICAL HISTORY: Chronic joint pain for 10 years. Rheumatology assessment. TECHNIQUE: 6 view(s), 6 image(s). COMPARISON: None. COMBINED RESULT: There is no right or left foot acute fracture or osseous malalignment on these non-weightbearing radiographs. Osseous mineralization is normal. No erosive osseous changes. Joint spaces are preserved. Tiny bilateral retrocalcaneal spurs. Soft tissues are within normal limits. COMBINED IMPRESSION: No acute right or left foot osseous abnormality. No erosive osseous changes. No significant right or left foot degenerative changes. XR FOOT RIGHT 3 Observed: 12/16/2017 Status: F Source: [facility] 8:29 AM [facility] ([facility] REPOSITORY PROCEDURE: RIGHT AND LEFT FOOT RADIOGRAPHS, 12/16/2017 8:29 AM CLINICAL HISTORY: Chronic joint pain for 10 years. Rheumatology assessment. TECHNIQUE: 6 view(s), 6 image(s). COMPARISON: None. COMBINED RESULT: There is no right or left foot acute fracture or osseous malalignment on these non-weightbearing radiographs. Osseous mineralization is normal. No erosive osseous changes. Joint spaces are preserved. Tiny bilateral retrocalcaneal spurs. Soft tissues are within normal limits. COMBINED IMPRESSION: No acute right or left foot osseous abnormality. No erosive osseous changes. No significant right or left foot degenerative changes. XR SHOULDER LEFT MIN Observed: 12/16/2017 Status: F Source: [facility] 2 VIEWS 8:28 AM SYSTEM ([facility]) REPOSITORY PROCEDURE: RIGHT AND LEFT SHOULDER RADIOGRAPHS, 12/16/2017, 8:28 AM CLINICAL HISTORY: Chronic joint pain for 10 years. Rheumatology assessment. TECHNIQUE: Six view(s), six image(s). COMPARISON: None. COMBINED RESULT: There is no right or left shoulder acute fracture or dislocation. Osseous mineralization is normal. Glenohumeral and acromioclavicular joints are maintained bilaterally. Acromiohumeral intervals are normal. Indeterminate 8 mm nodular opacity is seen overlying the right lateral hemithorax and located immediately inferior to the posterior right sixth rib. Soft tissues are otherwise within normal limits. COMBINED IMPRESSION: Unremarkable radiographic appearance of the right and left shoulder. Indeterminate 8 mm nodular opacity overlying the lateral right hemithorax immediately inferior to the posterior right sixth rib. This could be further characterized with CT imaging of the chest. Alternatively, followup two-view chest radiograph in 6 months is recommended to assess for stability. CMP FASTING Collected: 12/16/2017 Status: F Source: [facility] 8:10 AM [facility] [place] TYPE CODE TESTS RESULT OUT OF REFERENCE UNITS RANGE LAB GLF 70-100 MG/DL GLUCOSE 83 FASTING Result Comment: NORMAL <100 mg/dL PREDIABETES 101-126 mg/dL DIABETES 126 mg/dL or higher LAB BUN 7-20 MG/DL BLOOD UREA 9 NITROGEN LAB CRET 0.52-1.04 MG/DL CREATININE Low SERUM 0.5 LAB NA 137-145 MMOL/L SODIUM 138 LAB K 3.5-5.1 MMOL/L POTASSIUM 4.0 LAB CL 98-107 MMOL/L CHLORIDE 105 LAB CA 8.4-10.2 MG/DL CALCIUM 8.9 LAB TP 6.3-8.2 GM/DL TOTAL PROTEIN 7.9 LAB ALB 3.5-5.0 G/dl ALBUMIN 4.3 LAB TBIL 0.2-1.2 MG/DL BILIRUBIN TOTAL 0.6 LAB AST 15-41 IU/L AST 21 LAB ALKP 38-126 IU/L ALK 89 PHOSPHATASE LAB CO2 22-30 MMOL/L CO2 26 LAB AG 1.3-2.2 RATIO A:G RATIO Low 1.2 LAB ALT 14-54 IU/L ALT 16 LAB GFR ml/min/1.73 sq.m EST. GFR,Non >60 LAB GFRB ml/min/1.73 sq.m EST. GFR, >60 [facility] GFRCOM GFR Information Average GFR for 40-49 years old = 99. Result Comment: Chronic Kidney disease, GFR = <60. Kidney failure, GFR = <15. The GFR estimate is not adjusted for extreme body surface area or acute process, nor has it been validated for women or ethnic groups other than and . Performed By: #### CMPF, CPK, HEMOG, B12, TSH2, ESR #### Testing performed at [address] [address] #### LRBCF #### Testing performed at [address] [address] Testing performed at [address] [address] #### LTTG, KYRIE, LIMEL #### Testing performed at [address] [address] #### LANCA #### Testing performed at [address] [address] Testing performed at [facility] #### LACCGA, [id number], LVB1, LVB6 #### Testing performed at [facility] CPK Collected: 12/16/2017 Status: F Source: [facility] 8:10 AM [facility] [place] REPOSITORY TYPE CODE TESTS RESULT OUT OF RANGE REFERENCE UNITS LAB CPK 30-135 IU/L CPK 58 Performed By: #### CMPF, CPK, HEMOG, B12, TSH2, ESR #### Testing performed at [address] [address] #### LRBCF #### Testing performed at [address] [address] Testing performed at [address] [address] #### LTTG, KYRIE, LIMEL #### Testing performed at [address] [address] #### LANCA #### Testing performed at [address] [address] Testing performed at [facility] #### LACCGA, [id number], LVB1, LVB6 #### Testing performed at [facility] CBC(NO DIFF) Collected: 12/16/2017 Status: F Source: [facility] 8:10 AM [facility] [place] REPOSITORY TYPE CODE TESTS RESULT OUT OF REFERENCE UNITS RANGE LAB WBC 3.6-11.0 /cmm Low WBC COUNT 3.3 LAB RBC 4.0-5.4 /cmm RBC COUNT 4.47 LAB HGB 12.0-16.0 G/DL Low HEMOGLOBIN 10.6 LAB HCT 36.0-48.0 % Low HEMATOCRIT 32.9 LAB MCV 80.0-100.0 FL Low MCV 73.7 LAB MCH 26.0-35.0 PG Low MCH 23.6 LAB MCHC 27.0-37.0 G/DL MCHC 32.0 LAB RDW 11.5-14.5 % RDW High 16.2 LAB PLTC 130.0-400.0 /cmm PLATELET COUNT 252 LAB MPV 7.4-11.0 FL MPV 8.1 Performed By: #### CMPF, CPK, HEMOG, B12, TSH2, ESR #### Testing performed at [address] [address] #### LRBCF #### Testing performed at [address] [address] Testing performed at [address] [place] [address] #### LTTG, KYRIE, LIMEL #### Testing performed [address] [place] [address] #### LANCA #### Testing performed at [address] [place] [address] Testing performed at [facility] #### LACCGA, [id number], LVB1, LVB6 #### Testing performed at [facility] VITAMIN B12 Collected: 12/16/2017 Status: F Source: [facility] 8:10 AM [facility] [place] TYPE CODE TESTS RESULT OUT OF REFERENCE UNITS RANGE LAB B12 180-914 PG/ML VITAMIN B12 201 Performed By: #### CMPF, CPK, HEMOG, B12, TSH2, ESR #### Testing performed at [address] [address] #### LRBCF #### Testing performed at [address] [address] Testing performed at [address] [address] #### LTTG, KYRIE, LIMEL #### Testing performed [address] [place] [address] #### LANCA #### Testing performed [address] [place] [address] Testing performed at [facility] #### LACCGA, [id number], LVB1, LVB6 #### Testing performed at [facility] TSH Collected: 12/16/2017 Status: F Source: [facility] 8:10 AM [facility] [place] TYPE CODE TESTS RESULT OUT OF RANGE REFERENCE UNITS LAB TSH2 0.45-5.33 uIU/ML TSH 2.412 Performed By: #### CMPF, CPK, HEMOG, B12, TSH2, ESR #### Testing performed at [address] [address] #### LRBCF #### Testing performed at [address] [address] Testing performed [address] [place] [address] #### LTTG, KYRIE, LIMEL #### Testing performed [address] [place] [address] #### LANCA #### Testing performed at [address] [place] [address] Testing performed at [facility] #### LACCGA, [id number], LVB1, LVB6 #### Testing performed at [facility] ESR Collected: 12/16/2017 Status: F Source: [facility] 8:10 AM [facility] [place] TYPE CODE TESTS RESULT OUT OF RANGE REFERENCE UNITS LAB ESR 0-20 MM/HR ESR 14 Performed By: #### CMPF, CPK, HEMOG, B12, TSH2, ESR #### Testing performed at [address] [address] #### LRBCF #### Testing performed at [address] [address] Testing performed at [address] [place] [address] #### LTTG, KYRIE, LIMEL #### Testing performed [address] [place] [address] #### LANCA #### Testing performed [address] [place] [address] Testing performed at [facility] #### LACCGA, [id number], LVB1, LVB6 #### Testing performed at [facility] RHEUMATOID FACTOR Collected: 12/16/2017 Status: F Source: [facility] 8:10 AM [facility] [place]POS[place] TYPE CODE TESTS RESULT OUT OF REFERENCE UNITS RANGE LAB RAFT <12 Iu/mL RHEUMATOID <8.6 FACTOR Performed By: #### CMPF, CPK, HEMOG, B12, TSH2, ESR #### Testing performed at [address] [address] #### LRBCF #### Testing performed at [address] [address] Testing performed at [address] [address] #### LTTG, KYRIE, LIMEL #### Testing performed [address] [place] [address] #### LANCA #### Testing performed at [address] [address] Testing performed at [facility] #### LACCGA, [id number], LVB1, LVB6 #### Testing performed at [facility] RBC FOLATE Collected: 12/16/2017 Status: P [facility] [place] REPOSITORY TYPE CODE TESTS RESULT OUT OF REFERENCE UNITS RANGE LAB XRBCF1 FOLATE,HEMOLYSAT PENDING E LAB XTCE16 34.0-46.6 % Low HEMATOCRIT 31.9 Result Comment: PERFORMED AT [facility] LAB XRBCF2 FOLATE,RBC PENDING Performed By: #### CMPF, CPK, HEMOG, B12, TSH2, ESR #### Testing performed at [address] [address] #### LRBCF #### Testing performed at [address] [address] Testing performed at [address] [address] #### LTTG, KYRIE, LIMEL #### Testing performed at [address] [address] #### LANCA #### Testing performed at [address] [address] Testing performed at [facility] #### LACCGA, [id number], LVB1, LVB6 #### Testing performed at [facility] A-AZIPAJEEL-YPA,IGA Collected: Status: F Source: [employer] 12/16/2017 8:10 AM [facility] ([place] REPOSITORY TYPE CODE TESTS RESULT OUT OF RANGE REFERENCE UNITS LAB XCEL2 0-3 U/mL TTG- IGA 2 Result Comment: (NOTE) Negative 0 - 3 Weak Positive 4 - 10 Positive >10 Tissue Transglutaminase (tTG) has been identified as the endomysial antigen. Studies have demonstr- ated that endomysial IgA antibodies have over 99% specificity for gluten sensitive enteropathy. PERFORMED AT [facility] Performed By: #### CMPF, CPK, HEMOG, B12, TSH2, ESR #### Testing performed at [address] [address] #### LRBCF #### Testing performed at [address] [address] Testing performed at [address] [address] #### LTTG, KYRIE, LIMEL #### Testing performed at [facility] [address] [place], [place] [address] [address] #### LANCA #### Testing performed at [address] [address] Testing performed at [facility] #### LACCGA, [id number], LVB1, LVB6 #### Testing performed at [facility] ANCA PANEL Collected: 12/16/2017 Status: F Source: [facility] 8:10 AM SYSTEM ([place] REPOSITORY TYPE CODE TESTS RESULT OUT OF RANGE REFERENCE UNITS LAB XANC1 0.0-9.0 U/mL MPO ABS <9.0 Result Comment: PERFORMED AT [facility] LAB XANC2 0.0-3.5 U/mL 3 (WA-3) ABS <3.5 Result Comment: PERFORMED AT [facility] LAB XANC3 Neg:<1:20 titer CYTOPLASMIC (C-ANCA) <1:20 LAB XANC4 Neg:<1:20 titer PERINUCLEAR (P-ANCA) <1:20 Result Comment: (NOTE) The presence of positive fluorescence exhibiting P-ANCA or C-ANCA patterns alone is not specific for the diagnosis of Stas's Granulomatosis (WG) or microscopic polyangiitis. Decisions about treatment should not be based solely on ANCA IFA results. The [employer] ANCA [employer] Consensus recommends follow up testing of positive sera with both WA-3 and MPO-ANCA enzyme immunoassays. As many as 5% serum samples are positive only by EIA. Ref. AM J Clin Pathol 1999;111:507-513. LAB XANC5 Neg:<1:20 titer ATYPICAL PANCA <1:20 Result Comment: (NOTE) The atypical pANCA pattern has been observed in a significant percentage of patients with ulcerative colitis, primary sclerosing cholangitis and autoimmune hepatitis. PERFORMED AT [facility] Performed By: #### CMPF, CPK, HEMOG, B12, TSH2, ESR #### Testing performed at [address] [address] #### LRBCF #### Testing performed at [address] [address] Testing performed at [address] [address] #### LTTG, KYRIE, LIMEL #### Testing performed at [address] [place] [address] #### LANCA #### Testing performed at [address] [address] Testing performed at [facility] #### LACCGA, [id number], LVB1, LVB6 #### Testing performed at [facility] JOHNSON W/REFLEX IF POS Collected: 12/16/2017 Status: F Source: [facility] 8:10 AM SYSTEM ([place] REPOSITORY TYPE CODE TESTS RESULT OUT OF REFERENCE UNITS RANGE LAB XANA Negative Negative JOHNSON-DIRECT Result Comment: PERFORMED AT [facility] Performed By: #### CMPF, CPK, HEMOG, B12, TSH2, ESR #### Testing performed at [address] [address] #### LRBCF #### Testing performed at [address] [address] Testing performed at [address] [address] #### LTTG, KYRIE, LIMEL #### Testing performed at [address] [place] [address] #### LANCA #### Testing performed at [address] [address] Testing performed at [facility] #### LACCGA, [id number], LVB1, LVB6 #### Testing performed at [facility] GONZALEZ AND PE, SERUM Collected: 12/16/2017 Status: F Source: [facility] 8:10 AM SYSTEM ([place] REPOSITORY TYPE CODE TESTS RESULT OUT OF REFERENCE UNITS RANGE LAB XIGG1 700-1600 mg/dL IGG 1119 LAB XIGG2 87-352 mg/dL IGA 155 LAB XIGG3 26-217 mg/dL IGM 146 LAB XPE1 6.0-8.5 g/dL PROTEIN, TOTAL 7.2 LAB XPEI1 2.9-4.4 g/dL ALBUMIN 3.9 LAB XPEI2 0.0-0.4 g/dL [id number] 0.2 IN LAB XPEI3 0.4-1.0 g/dL [id number]-7-QDWLAQ 0.6 IN LAB XPEI4 0.7-1.3 g/dL BETA GLOBULIN 1.1 LAB XPEI5 0.4-1.8 g/dL GAMMA GLOBULIN 1.3 LAB XPEI6 Not Observed g/dL M-SPIKE Not Observed LAB XPEI7 2.2-3.9 g/dL GLOBULIN, 3.3 TOTAL LAB XPEI8 0.7-1.7 A/G RATIO 1.2 LAB XPEI9 IMMUNOFIX: Comment Result Comment: No monoclonality detected. LAB XPUI13 Comment PLEASE NOTE: Result Comment: (NOTE) Protein electrophoresis scan will follow via computer, mail, or executive director of nursing delivery. PERFORMED AT [facility] Performed By: #### CMPF, CPK, HEMOG, B12, TSH2, ESR #### Testing performed at [address] [address] #### LRBCF #### Testing performed at [address] [address] Testing performed at [address] [address] #### LTTG, KYRIE, LIMEL #### Testing performed at [address] [place] [address] [place] [address] #### LANCA #### Testing performed at [address] [address] Testing performed at [facility] #### LACCGA, ZAP439, LVB1, LVB6 #### Testing performed at [facility] CCP AB IGG IGA Collected: 12/16/2017 Status: F Source: [employer] [facility] 8:10 AM SYSTEM ([place] REPOSITORY TYPE CODE TESTS RESULT OUT OF RANGE REFERENCE UNITS LAB XACC 0-19 units ACC AB 7 IGG IGA Result Comment: (NOTE) Negative <20 Weak positive 20 - 39 Moderate positive 40 - 59 Strong positive >59 PERFORMED AT [facility] Performed By: #### CMPF, CPK, HEMOG, B12, TSH2, ESR #### Testing performed at [address] [address] #### LRBCF #### Testing performed at [address] [address] Testing performed at [address] [place] [address] #### LTTG, KYRIE, LIMEL #### Testing performed at [address] [address] #### LANCA #### Testing performed at [address] [address] Testing performed at [facility] #### LACCGA, PLI434, LVB1, LVB6 #### Testing performed at [facility] VIT D, 1,25 DIHYDROX Collected: 12/16/2017 Status: F Source: [facility] 8:10 AM [place] ([place] REPOSITORY TYPE CODE TESTS RESULT OUT OF RANGE REFERENCE UNITS LAB [id number] 19.9-79.3 pg/mL VIT. D 62.7 1,25 Result Comment: PERFORMED AT [facility] Performed By: #### CMPF, CPK, HEMOG, B12, TSH2, ESR #### Testing performed at [address] [address] #### LRBCF #### Testing performed at [address] [place] [address] Testing performed at [address] [place] [address] #### LTTG, GIOVANA MITTALEL #### Testing performed at [address] [place] [address] #### LANCA #### Testing performed at [address] [place] [address] Testing performed at [facility] #### LACCGA, INR606, LVB1, LVB6 #### Testing performed at [facility] VIT.B1 THIAMINE-BLD Collected: 12/16/2017 Status: F Source: [facility] 8:10 AM [place] REPOSITORY TYPE CODE TESTS RESULT OUT OF RANGE REFERENCE UNITS LAB XVB1 66.5-200.0 nmol/L VIT.B1 111.2 THIAMINE-BLD Result Comment: PERFORMED AT [facility] Performed By: #### CMPF, CPK, HEMOG, B12, TSH2, ESR #### Testing performed at [address] [address] #### LRBCF #### Testing performed at [address] [address] Testing performed at [address] [address] #### LTTG, KYRIEGIOVANAEL #### Testing performed at [address] [address] #### LANCA #### Testing performed at [address] [place] [address] Testing performed at [facility] #### LACCGA, TRE629, LVB1, LVB6 #### Testing performed at [facility] VITAMIN B6 Collected: 12/16/2017 Status: F Source: [facility] 8:10 AM [place] REPOSITORY TYPE CODE TESTS RESULT OUT OF REFERENCE UNITS RANGE LAB XVB6 2.0-32.8 ug/L VITAMIN B6 LVL 22.6 Result Comment: PERFORMED AT [facility] Performed By: #### CMPF, CPK, HEMOG, B12, TSH2, ESR #### Testing performed at [address] [address] #### LRBCF #### Testing performed at [address] [address] Testing performed at [facility] [address] [place] [address] [place] [address] #### LTTG, KYRIE, LIMEL #### Testing performed at [facility] [address] [place] [address] [place] [address] #### LANCA #### Testing performed at [facility] [address] [place], [place] [address] [place] [address] Testing performed at [facility] #### LACCGA, BOS785, LVB1, LVB6 #### Testing performed at [facility] ALLERGIES ALLERGIES DATE TYPE / CODE NAME / CODE REACTION SEVERITY SOURCE Drug NO KNOWN [facility] Three Class/92420 ALLERGIES Repository 1003(SNOMED CT) ENCOUNTERS ENCOUNTERS ADMIT/DISCHARGE ACCOUNT NUMBER ADMITTING ENCOUNTER LOCATION SOURCE CLASS 09/11/2018 [id number] Ambulatory [facility] ding:WOBLAB Repository 09/09/2018 [id number] Ambulatory [facility] ding:LABSPEC Repository 09/02/2018 [id number] Ambulatory Building:[facility] Repository 09/02/2018 [id number] Ambulatory Building:[facility] Repository 05/03/2018 [id number] Guy, Ambulatory [facility] Brady Fuentes [facility] Repository 04/25/2018/04/25/20 [id number] [facility], Ambulatory Building:[address] Three Repository 04/24/2018 [id number] Ambulatory BuildinD [facility] ([place]) Repository 04/07/2018 [id number] Ambulatory Building:[facility] Three Repository 02/06/2018 [id number] Ambulatory BuildinC [facility] ([place]) Repository 01/28/2018 [id number] Ambulatory [address] [place], [place] [address] ([place]) Repository 01/07/2018 [id number] Ambulatory BuildinR [facility] ([place] Repository 2018 [id number] Ambulatory [facility] [place] Repository 12/16/2017 [id number] [facility]ulatory [facility] [place] Rep[place] 12/16/2017 [id number] [facility]ulatory [facility] [place] Rep[place] 12/16/2017 [id number] Ambulatory [facility] [place] Rep[place] 12/16/2017 [id number] Ambulatory [facility] [place] Rep[place] 12/16/2017 [id number] Ambulatory [facility] [place] Rep[place] 12/16/2017 [id number] Ambulatory [facility] ([place] Rep[place] 12/16/2017 [id number] Ambulatory [facility] [place] Rep[place] 12/10/2017 [id number] Ambulatory [facility] [place] Repository 10/15/2017 [id number] Ambulatory [facility] ([place] Repository PAYERS PAYERS ENCOUNTER GUARANTOR PAYER SUBSCRIBER SOURCE 09/11/2018 NICKI Primary SCOTTIE A Tucker [id number] Insurance:CARESOURCEP STAYVONNEB: [facility] anita CRUZ Number: [id number] [id number]: [id number] Repository Date:2018-09-11P O () [address]ATTN: [place] [address]IM: 09/11/2018 Secondary NOT GIVENUNK [place] Insurance:SELF PAY [facility] Number: Effective Repository Date:2018-09-11 09/09/2018 NICKI Primary SCOTTIE A Tucker [id number] Insurance:CARESOURCEP [facility] Number: [id number] Service Unit [id number]: [id number] Repository Date:2018-09-09P O () [address]ATTN: [place] [address]YQ: 09/09/2018 Secondary NOT GIVENUNK [place] Insurance:SELF PAY [facility] Number: Effective Repository Date:2018-09-09 09/02/2018 SCOTTIE Primary SC[facility]IE [facility] [place] ic Number: [id number] [facility], [id number] 0 [facility] [address]Ohw: Date:3620-91-19Fwiz D [place], [place] Repository Name:RBUY [id number]: [phone] () 09/02/2018 SCOTTIE Primary SCOTTIE [facility]: Insurance:[facility]: [place] ic Number: [id number] [facility], [id number] 0 [facility] [address]: Date:6889-71-15Kamh D [place], [place] Repository Name:[address] [id number]: [phone] (HP) [phone] () 05/03/2018 Primary SCOTTIE A [facility]: [place] Number: [id number] [facility] [id number] 0 [place] Repository Date:Plan [place], [place] Name:[facility] [address] [address]Qmf: [phone], [place] [phone] () [address]KP: 04/25/2018 SCOTTIE Primary SCOTTIE [facility]: [facility]: [facility] Repository MANAGED [id number] ALLEN MEDICAIDPolicy 0 [place], [place] Number: [place], [place] [address]Wkv: [phone] [id number]: (HP) Date:6313-05-19BZ [phone] (HP) [address] [place] [phone]: 04/07/2018 SCOTTIE Primary [facility]: Insurance:[facility]: [facility] Repository [id number] MANAGED [id number] ALLEN MEDICAIDPolicy 0 [place], [place] Number: [place], [place] [address]Xlc: (611) [id number] [id number]: () Date:8473-23-59AZ [phone] () [address] [place] [phone]:
== END ==
PROVIDERS: Family Provider Family Medicine; PCP Family Medicine; Referring Provider Obstetrics & Gynecology; Visit Provider Obstetrics & Gynecology
DX: N85.8 Other specified noninflammatory disorders of uterus (principal); N92.1 Excessive and frequent menstruation with irregular cycle
CPT/HCPCS: 87624; 88175; 88305; G0145

== ENCOUNTER → 2018-09-11 15:59 | Outpatient (CLI) | payer MEDICAID, SELFPAY ==
[2018-09-11 17:59] LABS: Progesterone Level 5.81 ng/mL (See Comment)
== END ==
PROVIDERS: Visit Provider Obstetrics & Gynecology
DX: N92.1 Excessive and frequent menstruation with irregular cycle (principal)
CPT/HCPCS: 36415; 84144

== ENCOUNTER → 2018-09-30 08:14 | Outpatient (CLI) | payer MEDICAID, SELFPAY ==
--- NOTE | 2018-09-30 08:19 | RAD_ITS ---
STUDY: BOWEL TRANSIT STUDY. REASON FOR EXAM: Female, 43 years old. IBS. Constipation. TECHNIQUE: Supine views of the abdomen were obtained over a span of 6 days. COMPARISON: None. FINDINGS: The initial image demonstrates a large amount of fecal material in the colon. On the initial image, the opaque markers are seen scattered throughout the colon. The largest concentration is in the left colon. On the 2 day follow up examination, the majority of the markers are seen in the rectosigmoid colon. On the third day following ingestion, the majority of the markers on the rectosigmoid colon. On the sixth date, 2 markers are seen in the rectum. RAD/Colonic Trans GI/w Mul Image IMPRESSION: : Transvaginal examination as described. Electronically Signed: Jabari Hutchison MD at 8:58 EST , Service support ,
== END ==
PROVIDERS: Family Provider Family Medicine; PCP Family Medicine
DX: K58.1 Irritable bowel syndrome with constipation (principal); D50.9 Iron deficiency anemia, unspecified
CPT/HCPCS: 74245

== ENCOUNTER → 2018-10-21 10:20 | Outpatient (CLI) | payer MEDICAID, SELFPAY ==
--- NOTE | 2018-10-21 10:23 | BI_ITS ---
MAMMOGRAPHY - BILATERAL SCREENING REASON FOR EXAM: Female, 43 years old. Routine annual screening examination. PERTINENT HISTORY: Non-contributory. TECHNIQUE: Digital bilateral breast mary (3D mammographic acquisition) in the CC and MLO projections. 2-D mediolateral oblique (MLO) and craniocaudad (CC) views of both breasts were obtained. CAD: Full Field Digital Mammography with Computer Added Detection was performed. COMPARISON: Comparison is made with prior study dated March 10, 2014. FINDINGS: Breast Composition: There are scattered areas of fibroglandular density. There are no dominant masses or suspicious calcifications. Stable benign appearing bilateral axillary lymph nodes. No other significant abnormalities are identified. There has been no significant change since the prior study. BI/SCREENING MAMM (CAD), BILAT IMPRESSION: Stable bilateral screening mammogram. Yearly follow-up mammogram recommended. (A) ASSESSMENT CATEGORY: BIRADS Category 2: Benign. A letter regarding these results will be sent to the patient by the facility within 30 days. Approximately 10% of breast cancers are not detected by mammography. A normal mammogram should not delay biopsy of a clinically suspicious abnormality. [id number] Electronically Signed: Jabari Hutchison, at 11:47 EST , Service support ,
== END ==
PROVIDERS: Family Provider Family Medicine; PCP Family Medicine; Referring Provider Obstetrics & Gynecology; Visit Provider Obstetrics & Gynecology
DX: Z12.31 Encounter for screening mammogram for malignant neoplasm of breast (principal)
CPT/HCPCS: 77063; 77067

== ENCOUNTER 2018-12-24 12:09 | Day surgery (SDC) | payer MEDICAID, SELFPAY ==
[2018-12-19 14:34] LABS: Hematocrit 36.7 % (37-47); Hemoglobin 11.9 g/dl (12.0-15.0); Mean Corp Hgb Conc 32.4 g/gl (32-36); Mean Corpuscular Hgb 28.3 pg (27.0-32.0); Mean Corpuscular Volume 87.2 fL (81-99); Mean Platelet Vol. 9.5 fl (6.2-12.0); Platelet Count 221 K/mm3 (150-450); RBC Distribution Width SD 41.6 fl (35.1-43.9); Red Blood Count 4.21 M/mm3 (4.2-5.4); Scan Indicated on CBC? Y/N NO; White Blood Count 3.9 K/mm3 (4.4-11.0)
[2018-12-19 14:41] LABS: Partial Thromboplast Time 27.8 Seconds (24.1-36.2)
--- NOTE | 2018-12-19 15:02 | PCM.HP.STD ---
History of Present Illness Date of Admission: 12/19/18 12/19/2018 Name: LYLA CHOUDHARY Age: 43 Date of : 1975 HISTORY OF PRESENT ILLNESS: On 12/19/2018, Lyla Choudhary, a 43 year old female 2 0 0 0 2, presented for: -- Pre-Op Lyla is here for pre-op visit. Planned LAVH/BS. Consents are signed and PAT packet provided. LMT As above. Here for preop appt prior to planned LAVH and bilateral salpingectomy for chronic pelvic pain in the last 3-4 yrs. Irregular bleeding, endometrial ultrasound suggestive of endometrial polyp. Pain with intercourse and central pelvic pain suspicious for adenomyosis. Declines conservative management and prefers to proceed with definitive surgery: LAVH, bilateral salpingectomy. States painful most of them month with continued irregular bleeding. Relates 21 yo son coming home from [employer] next week and plans to go to [place] for [place]. She is asking about traveling... aware that 2 d after surgery may be a little early to travel but if comfortable, no contraindication to travel and would need to move around frequently to avoid DVT. They have questions about what happens to the eggs with ovulation then , and about vaginal cuff closure. Reviewed anticipated preop, operative and postop recovery including activity restrictions. EB ALLERGIES: No Known Drug Allergies MEDICATIONS HISTORY: Current medications prescribed by our practice are: 1. Prometrium 200 mg capsule, One pill by mouth once a day at hs CD 15 to 25 REVIEW OF SYSTEMS: GENERAL - Denies fever, or chills SKIN - Denies skin changes EYES - wears eye glasses EARS - Denies difficulty hearing NOSE - Denies nasal congestion or bleeding MOUTH - Denies sore throat or difficulty swallowing NECK - Denies pain or swelling RESPIRATORY - Denies shortness of breath or wheezing CARDIOVASCULAR - Denies palpitations or chest pain GASTROINTESTINAL - Denies nausea, vomiting, diarrhea, constipation GENITOURINARY - irregular menses and cramping MUSCULOSKELETAL - Denies joint or muscle pain NEUROLOGICAL - Denies localized numbness or weakness PSYCHIATRIC - Denies depression or anxiety ENDOCRINE - Denies heat or cold intolerance, weight loss or gain HEMATO-IMMUNOLOGIC - Denies excessive bleeding with cuts PAST HISTORY: Breast/Ovarian/Colon Cancers - Denies Infections - Chicken pox Illnesses - Arthritis, depression in the past Accidents - None History of Abnormal PAPS - Denies Hospitalizations - Childbirth and see surgery last pap 2013; SURGICAL HISTORY: 1. Billings Teeth Removal MENSTRUAL HISTORY: LMP Known?- Approximate-Month Known Amount/Duration - extended, Regularity - Irregular, Frequency - monthly days, LMP - 12/05/18, Age Onset Menarche - 12 PAST PREGNANCIES: Total Pregnancies - 2; Full Term Pregnancies - 2; Premature - 0; Abortions, Induced - 0; Abortions, Spontaneous - 0; Ectopics - 0; Multiple Births - 0; Living Children - 2 FAMILY HISTORY: Father - Prostate Cancer; Maternal Grandparent - Hypertension; Paternal Grandparent - Type 2 Diabetes; SOCIAL HISTORY: Alcohol Use - denies drinking Smoking - denies smoking Diet - no special diet Lifestyle - Exercise - none Seat Belt Use - always Employer - stays at home Illicit Drug Use - denies use of street drugs Sexual Activity - Spouse-Sig Other Name - Bryant Spouse-Sig Other Occupation - Core Composer [employer] Children Name(s) - Hue Gray Control - Vasectomy PHYSICAL EXAMINATION BP- 110/68 Sitting, Right arm, regular cuff Temp- 98.4 Taken Orally Weight- 153.00 lbs Height- 66.00 inch BMI:24.75 CONSTITUTIONAL - NAD, well nourished, and well developed HEENT - normocephalic, atraumatic, sclerae anicteric NECK - no nuchal rigidity EXTREMITIES - no edema and no deformities NEUROLOGICAL - normal gait, normal balance, normal motor PSYCHIATRIC - A and O to time, place, person, mood and affect ASSESSMENT: 1. Excessive And Frequent Menstruation With Irregular Cycle 2. Deep Dyspareunia 3. Pelvic And Perineal Pain PLAN BY DIAGNOSIS: 1. Excessive And Frequent Menstruation With Irregular Cycle Continued heavy periods and central pelvic pain in last 3-4 yrs. Prior US - no clear evidence of endometriosis or adenomyosis, sono however suggests polyp Thickened endometrial stripe prior with benign EMB. Hysteroscopy, D and C and polypectomy recommended prior. Had also discussed trial of medical management Declines conservative treatments: medical management (Prometrium not working for her); and hysteroscopy D and C. Prefers hysterectomy Reviewed R,B,A of hysterectomy and bilateral salpingectomy. Advised [facility] to evaluate pelvic pain and to remove fallopian tubes. Discussed anticipated preop, operative course and postop recovery. including activity restrictions. Plan to leave both ovaries in place. Reviewed eventual menopause sx as ovarian function ceases. RTO in 2 wk for initial postop checkup after surgery. 2. Deep Dyspareunia and Pelvic And Perineal Pain Reviewed diff dx. Pt is aware pain may be due to bowel, bladder, musculoskeletal. Seems to have some component of IBS. Workup with graduate assistant athletic trainer ongoing but has not had colonoscopy yet. Pain more central in pelvis and radiates to back. Not localized to one side or the other. Suspect adenomyosis as source of pain in multiparous woman Plan LAVH, bilateral salpingectomy as scheduled. All questions re procedure answered to their satisfaction . Return to [facility] for LAVH, bilateral salpingectomy as scheduled. To PAT next for labs. 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 Past Medical History Allergies No Known Allergies Allergy (Verified 12/17/18 10:23) Home Medications: Ambulatory Orders Medication Instructions Recorded Cholecalciferol (Vitamin D3) 10,000 unit PO QWEEK 12/17/18 [Vitamin D3] Iron Aspgly,Ps/C/B12/FA/Ca/Suc 1 each PO DAILY 12/17/18 [Ferrex 150 Forte Plus Capsule] L.acidoph,Paracasei, B.lactis 1 each PO DAILY 12/17/18 [Probiotic] Progesterone, Micronized 200 mg PO UD 12/17/18 [Progesterone] Smoking Status: Never smoker Tobacco Use: Non-smoker VTE Information - Inpt Only VTE Present on Admission: No VTE Mechan Device Prophylaxis: SCD's - Physical Exam Laboratory Tests Past 24 Hrs 12/19/18 12/19/18 12/19/18 14:08 14:08 14:08 WBC 3.9 L RBC 4.21 Hgb 11.9 L Hct 36.7 L MCV 87.2 MCH 28.3 MCHC 32.4 RDW 13.0 RDW Differential 41.6 Plt Count 221 MPV 9.5 PT 13.0 INR 1.0 APTT 27.8 Blood Type Pending Antibody Screen Pending
--- NOTE | 2018-12-19 15:05 | HP.PCM_ITS ---
History of Present Illness Date of Admission: 12/19/18 12/19/2018 Name: LYLA CHOUDHARY Age: 43 Date of : 1975 HISTORY OF PRESENT ILLNESS: On 12/19/2018, Lyla Choudhary, a 43 year old female 2 0 0 0 2, presented for: -- Pre-Op Lyla is here for pre-op visit. Planned LAVH/BS. Consents are signed and PAT packet provided. LMT As above. Here for preop appt prior to planned LAVH and bilateral salpingectomy for chronic pelvic pain in the last 3-4 yrs. Irregular bleeding, endometrial ultrasound suggestive of endometrial polyp. Pain with intercourse and central pelvic pain suspicious for adenomyosis. Declines conservative management and prefers to proceed with definitive surgery: LAVH, bilateral salpingectomy. States painful most of them month with continued irregular bleeding. Relates 21 yo son coming home from [place] next week and plans to go to [place] for alliance party. She is asking about traveling... aware that 2 d after surgery may be a little early to travel but if comfortable, no contraindication to travel and would need to move around frequently to avoid DVT. They have questions about what happens to the eggs with ovulation then , and about vaginal cuff closure. Reviewed anticipated preop, operative and postop recovery including activity restric tions. EB ALLERGIES: No Known Drug Allergies MEDICATIONS HISTORY: Current medications prescribed by our practice are: 1. Prometrium 200 mg capsule, One pill by mouth once a day at hs CD 15 to 25 REVIEW OF SYSTEMS: GENERAL - Denies fever, or chills SKIN - Denies skin changes EYES - wears eye glasses EARS - Denies difficulty hearing NOSE - Denies nasal congestion or bleeding MOUTH - Denies sore throat or difficulty swallowing NECK - Denies pain or swelling RESPIRATORY - Denies shortness of breath or wheezing CARDIOVASCULAR - Denies palpitations or chest pain GASTROINTESTINAL - Denies nausea, vomiting, diarrhea, constipation GENITOURINARY - irregular menses and cramping MUSCULOSKELETAL - Denies joint or muscle pain NEUROLOGICAL - Denies localized numbness or weakness PSYCHIATRIC - Denies depression or anxiety ENDOCRINE - Denies heat or cold intolerance, weight loss or gain HEMATO-IMMUNOLOGIC - Denies excessive bleeding with cuts PAST HISTORY: Breast/Ovarian/Colon Cancers - Denies Infections - Chicken pox Illnesses - Arthritis, depression in the past Accidents - None History of Abnormal PAPS - Denies Hospitalizations - Childbirth and see surgery last pap 2013; SURGICAL HISTORY: 1. [place] Teeth Removal MENSTRUAL HISTORY: LMP Known?- Approximate-Month Known Amount/Duration - extended, Regularity - Irregular, Frequency - monthly days, LMP - 12/05/18, Age Onset Menarche - 12 PAST PREGNANCIES: Total Pregnancies - 2; Full Term Pregnancies - 2; Premature - 0; Abortions, Induced - 0; Abortions, Spontaneous - 0; Ectopics - 0; Multiple Births - 0; Living Children - 2 FAMILY HISTORY: Father - Prostate Cancer; Maternal Grandparent - Hypertension; Paternal Grandparent - Type 2 Diabetes; SOCIAL HISTORY: Alcohol Use - denies drinking Smoking - denies smoking Diet - no special diet Lifestyle - Exercise - none Seat Belt Use - always Employer - stays at home Illicit Drug Use - denies use of street drugs Sexual Activity - Spouse-Sig Other Name - Bryant Spouse-Sig Other Occupation - Security Nurse Children Name(s) - Hue Gray Control - Vasectomy PHYSICAL EXAMINATION BP- 110/68 Sitting, Right arm, regular cuff Temp- 98.4 Taken Orally Weight- 153.00 lbs Height- 66.00 inch BMI:24.75 CONSTITUTIONAL - NAD, well nourished, and well developed HEENT - normocephalic, atraumatic, sclerae anicteric NECK - no nuchal rigidity EXTREMITIES - no edema and no deformities NEUROLOGICAL - normal gait, normal balance, normal motor PSYCHIATRIC - A and O to time, place, person, mood and affect ASSESSMENT: 1. Excessive And Frequent Menstruation With Irregular Cycle 2. Deep Dyspareunia 3. Pelvic And Perineal Pain PLAN BY DIAGNOSIS: 1. Excessive And Frequent Menstruation With Irregular Cycle Continued heavy periods and central pelvic pain in last 3-4 yrs. Prior US - no clear evidence of endometriosis or adenomyosis, sono however suggests polyp Thickened endometrial stripe prior with benign EMB. Hysteroscopy, D and C and polypectomy recommended prior. Had also discussed trial of medical management Declines conservative treatments: medical management (Prometrium not working for her); and hysteroscopy D and C. Prefers hysterectomy Reviewed R,B,A of hysterectomy and bilateral salpingectomy. [facility] and to [facility] fallopian tubes. Discussed anticipated preop, operative course and postop recovery. including activity restrictions. Plan to leave both ovaries in place. Reviewed eventual menopause sx as ovarian function ceases. RTO in 2 wk for initial postop checkup after surgery. 2. Deep Dyspareunia and Pelvic And Perineal Pain Reviewed diff dx. Pt is aware pain may be due to bowel, bladder, musculoskeletal. Seems to have some component of IBS. Workup with construction assistant ongoing but has not had colonoscopy yet. Pain more central in pelvis and radiates to back. Not localized to one side or the other. Suspect adenomyosis as source of pain in multiparous woman Plan LAVH, bilateral salpingectomy as scheduled. All questions re procedure answered to their satisfaction . Return to [facility] for LAVH, bilateral salpingectomy as scheduled. To PAT next for labs. 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 Past Medical History Allergies No Known Allergies Allergy (Verified 12/17/18 10:23) Home Medications: Ambulatory Orders Medication Instructions Recorded Cholecalciferol (Vitamin D3) 10,000 unit PO QWEEK 12/17/18 [Vitamin D3] Iron Aspgly,Ps/C/B12/FA/Ca/Suc 1 each PO DAILY 12/17/18 [Ferrex 150 Forte Plus Capsule] L.acidoph,Paracasei, B.lactis 1 each PO DAILY 12/17/18 [Probiotic] Progesterone, Micronized 200 mg PO UD 12/17/18 [Progesterone] Smoking Status: Never smoker Tobacco Use: Non-smoker VTE Information - Inpt Only VTE Present on Admission: No VTE Mechan Device Prophylaxis: SCD's - Physical Exam Laboratory Tests Past 24 Hrs 12/19/18 12/19/18 12/19/18 14:08 14:08 14:08 WBC 3.9 L RBC 4.21 Hgb 11.9 L Hct 36.7 L MCV 87.2 MCH 28.3 MCHC 32.4 RDW 13.0 RDW Differential 41.6 Plt Count 221 MPV 9.5 PT 13.0 INR 1.0 APTT 27.8 Blood Type Pending Antibody Screen Pending
[2018-12-24] VITALS (12 sets, daily range): BP systolic 93–110; BP diastolic 61–71; PULSE 61–85; RESP 16–18; TEMP 36.4–37.1; O2SAT 97–100; BMI 23.8
[2018-12-24 12:27] LABS: Internal QC Validated? YES +Cl - CLEAR BKGD; Pregnancy, Urine Negative Negative
--- NOTE | 2018-12-24 13:32 | PCM.DC.VHY ---
Discharge Diet: No Restrictions Discharge Activity: May not drive while taking narcotic pain medications., May Shower, May Take a Tub Bath Return to work on:: 02/09/19 May resume sexual activity in: 4-6 weeks Lifting Restrictions: Limit lifting to 20 # or less for 4-6 wk to allow healing. 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 OK to go up and down steps Call your doctor if you observe: Fever of 101 or Higher, Inability to have a bowel movement, Using more than one pad per hour, Shortness of breath, Calf discomfort, Uncontrolled pain Change Dressing in (Days):: 7 Remove Dressing in (days):: 7 Cleanse incision/area with: Soap & Water, Keep Dressing Clean & Dry Allergies/Adverse Reactions: Allergies No Known Allergies Allergy (Verified 12/17/18 10:23) Medications to take at Discharge Cholecalciferol (Vitamin D3) [Vitamin D3] 10,000 unit PO QWEEK 12/17/18 Iron Aspgly,Ps/C/B12/FA/Ca/Suc [Ferrex 150 Forte Plus Capsule] 1 each PO DAILY 12/17/18 L.acidoph,Paracasei, B.lactis [Probiotic] 1 each PO DAILY 12/17/18 Docusate Sodium [Colace] 100 mg PO BID #30 capsule 12/24/18 Naproxen [Naprosyn] 250 - 500 mg PO TID PRN PRN #30 tablet 12/24/18 Oxycodone [Oxyir] 5 - 10 mg PO Q6H PRN PRN 3 Days #15 tablet 12/24/18 Polyethylene Glycol 3350 [Miralax] 17 gm PO DAILY PRN #14 packet 12/24/18 The following prescriptions were given: Oxycodone [Oxyir] 5 - 10 mg PO Q6H PRN PRN 3 Days #15 tablet PRN Reason: Mod-Severe Pain (4-1010) Naproxen [Naprosyn] 250 - 500 mg PO TID PRN PRN #30 tablet PRN Reason: Mild-Mod Pain (1-5/10) Polyethylene Glycol 3350 [Miralax] 17 gm PO DAILY PRN #14 packet PRN Reason: Constipation Docusate Sodium [Colace] 100 mg PO BID #30 capsule Primary Care Physician: Nataliia Goldstein [Primary Care Provider] - Test Results: Test results from this visit will be discussed in further detail at your follow-up appointment, if applicable. Please Follow Up With: Robina Duke MD - [phone] When: in two weeks for postoperative appointment Proposed Discharge Date: 12/25/18
[2018-12-24] MEDS: Bupiv/Epi 0.5% Mpf 30 ML Vial (13:34)
--- NOTE | 2018-12-24 13:37 | DCINST_ITS ---
Discharge Diet: No Restrictions Discharge Activity: May not drive while taking narcotic pain medications., May Shower, May Take a Tub Bath Return to work on:: 02/09/19 May resume sexual activity in: 4-6 weeks Lifting Restrictions: Limit lifting to 20 # or less for 4-6 wk to allow healing. 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 OK to go up and down steps Call your doctor if you observe: Fever of 101 or Higher, Inability to have a bowel movement, Using more than one pad per hour, Shortness of breath, Calf discomfort, Uncontrolled pain Change Dressing in (Days):: 7 Remove Dressing in (days):: 7 Cleanse incision/area with: Soap & Water, Keep Dressing Clean & Dry Allergies/Adverse Reactions: Allergies No Known Allergies Allergy (Verified 12/17/18 10:23) Medications to take at Discharge Cholecalciferol (Vitamin D3) [Vitamin D3] 10,000 unit PO QWEEK 12/17/18 Iron Aspgly,Ps/C/B12/FA/Ca/Suc [Ferrex 150 Forte Plus Capsule] 1 each PO DAILY 12/17/18 L.acidoph,Paracasei, B.lactis [Probiotic] 1 each PO DAILY 12/17/18 Docusate Sodium [Colace] 100 mg PO BID #30 capsule 12/24/18 Naproxen [Naprosyn] 250 - 500 mg PO TID PRN PRN #30 tablet 12/24/18 Oxycodone [Oxyir] 5 - 10 mg PO Q6H PRN PRN 3 Days #15 tablet 12/24/18 Polyethylene Glycol 3350 [Miralax] 17 gm PO DAILY PRN #14 packet 12/24/18 The following prescriptions were given: Oxycodone [Oxyir] 5 - 10 mg PO Q6H PRN PRN 3 Days #15 tablet PRN Reason: Mod-Severe Pain (4-1010) Naproxen [Naprosyn] 250 - 500 mg PO TID PRN PRN #30 tablet PRN Reason: Mild-Mod Pain (1-5/10) Polyethylene Glycol 3350 [Miralax] 17 gm PO DAILY PRN #14 packet PRN Reason: Constipation Docusate Sodium [Colace] 100 mg PO BID #30 capsule Primary Care Physician: Nataliia Goldstein [Primary Care Provider] - Test Results: Test results from this visit will be discussed in further detail at your follow- up appointment, if applicable. Please Follow Up With: Robina Duke MD - [phone] When: in two weeks for postoperative appointment Proposed Discharge Date: 12/25/18
--- NOTE | 2018-12-24 14:05 | HYST_PTH ---
PATIENT: SCOTTIE CHOUDHARY [place] [facility] [place][id number] AGE/SX: 43/F ROOM: RE12/24/[address]: Dr. Robina Duke MD : 1975 BED: DIS: 12/25/2018 SPEC #: [id number] RECD: 12/25/18 07:51 STATUS: EVANGELINA NIDIA #: [id number] PAULIE: 12/24/18 14:[address]: Robina Duke DEPT: SURGICAL PATHOLOGY RECD BY: Erwin Miguel ENTERED: 12/25/18 09:04 SP TYPE: HYSTERECT OTHR DR: MD Dr. Nataliia Peralta MD Tissues: Uterus, NOS Procedures: Surgery Specimen Level V HEADER OPERATION: Hysterectomy, lap-assisted vaginal, salpingectomy PRE-OP DIAGNOSIS: Excessive and frequent menstruation with irregular cycle, deep dyspareunia, pelvic and perineal pain TISSUE SUBMITTED: Uterus, cervix and bilateral fallopian tubes MICROSCOPIC DIAGNOSIS Uterus, cervix and bilateral fallopian tubes, vaginal hysterectomy and bilateral salpingectomy: Cervix - mild chronic inflammation. Endometrium - early secretory endometrium. Myometrium - focal superficial adenomyosis. One fallopian tube - focal subserosal endometriosis. Second fallopian tube - no pathologic diagnosis. Paratubal cyst. SJ:faustino 12/26/18 COMMENT Please make reference to previous specimen ([id number]) endometrial biopsy with diagnosis of secretory endometrium. MICROSCOPIC DESCRIPTION Slides are reviewed. GROSS DESCRIPTION Received in fixative is one container labeled with the patient's name and designated uterus, cervix, bilateral fallopian tubes. The specimen consists of a uterus with attached cervix and separate bilateral fallopian tubes. The uterus with attached cervix measures 9.7 cm in length x 7 cm in width x 4.7 cm in AP dimension and weighs 146 gm. The serosal surface of the uterus is velásquez and smooth. No significant adhesion is found. The attached cervix measures 3.4 cm in length x 4.4 cm in diameter. The exocervical mucosa is velásquez with a concentric ring of hematoma. The cervical os is patulous and measures 0.9 cm in length. The uterus is opened to reveal a patent endocervical canal. Grossly, no endocervical lesion is observed. The triangular endometrial cavity measures 2.5 x 2.5 cm with an average endometrial thickness of 0.2 cm. The endometrial surface is beige and creamy with some areas of congestion. Sections through the myometrium demonstrate cut surfaces which are velásquez and homogenous. Grossly, no myometrial fibroid or other lesion is found. Maximal myometrial thickness is 2.2 cm. The first fallopian tube measures 4.1 cm in length x 0.5 cm in diameter. The serosal surface is velásquez-pink and smooth. A fimbriated end is present. Cross-sections through the fallopian tube demonstrate a pinpoint lumen. The contralateral fallopian tube measures 3.5 cm in length x 0.5 cm in diameter. The serosal surface is velásquez-pink and smooth. A fimbriated end is present. A 0.5 cm clear fluid-filled paratubal cyst is attached to the fimbriated end. Cross-sections through the fallopian tube demonstrate a pinpoint lumen. Coating And Baking Operator sections are submitted as follows: 1 - anterior cervix, 2 - posterior cervix, 3 & 4 - anterior endomyometrium, 5 & 6 - posterior endomyometrium, 7 - first fallopian tube, 8 - contralateral fallopian tube. / CE:faustino 12/25/18 TC:5 CPT: 09508
--- NOTE | 2018-12-24 15:38 | PCM.OPRPT ---
Report of Operation Date of Procedure: 12/24/18 Pre-Operative Diagnosis: Excessive And Frequent Menstruation With Irregular Cycle. Chronic pelvic pain, dyspareunia. Post-Operative Diagnosis: Same Surgery/Procedure Performed:: Laparoscopic assisted vaginal hysterectomy, bilateral salpingectomy Description of Surgical Findings:: Findings: On exam under anesthesia, the cervix has mild prolapse and is parous appearing. At Laparoscopy: the uterus is normal appearing. There are no significant adhesions in the pelvis-- filmy adhesions between bowel and pelvic/abdominal side wall . No evidence of endometriosis. Gross inspection of the bowel and omentum, liver edge and gallbladder are WNL. There are normal appearing fallopian tubes and ovaries bilaterally, with a follicular cyst on the Left ovary. proposal coordinator: Alejandrina - She Chang RN Second assist proposal coordinator: Ivis Swartz proposal coordinator: Charlene Type of Anesthesia:: General Anesthesiologist: Power Greer Specimen's removed: Uterus and cervix. Bilateral fallopian tubes Drains: Almanzar 280 + cc Estimated Blood Loss (mL): 100 cc Fluids Replaced: LR Description of Procedure: Narrative account: After the risks, benefits and alternatives of the procedure were reviewed with the patient , informed consent was obtained. The patient was taken to the Operating room with an IV running . She was positioned in the dorsal supine position on the operating table and given general anesthesia. Once asleep she was repositioned to the dorsal lithotomy position with the arms tucked at the sides and prepped and draped in the usual sterile fashion. A Almanzar catheter was inserted to drain the bladder and left open to drain in the drape. The weighted speculum was placed into the vagina and a single tooth tenaculum was placed at the cervix. A Zumi uterine manipulator was inserted into the cervix and the balloon was inflated. The speculum was removed. Attention was then turned to the anterior abdominal wall. the cold type composing machine operator's gloved were changed and skin incisions were created at the infraumbilical and suprapubic skin and at a point approximately senior living between the suprapubic and infraumbilical skin incisions. Local anesthesia was used to infiltrate the skin where the trocar incision sites were created. A transverse 5 mm infraumbilical skin incision , a transverse 5 mm suprapubic incision and an transverse 5 mm midline incision were created. A Veress needle was inserted in to the peritoneal cavity at the infraumbilical skin incision while maintaining upward traction of the anterior abdominal wall at the umbilicus. There was free drop of saline, free flow of CO2 and low opening pressure noted. Once the intraabdominal pressure had reached approximately 15 mm HG, the Veress needle was removed and a bladeless 5 mm trocar was inserted into the peritoneal cavity. Correct placement was confirmed using the laparoscope. Under direct visualization the other two 5 mm bladeless trocars were inserted into the peritoneal cavity. The fallopian tubes were retracted medially and using a LigaSure device the fallopian tube was divided from the ovary and the mesosalpinx, leaving the fallopian tube free at each side of the uterus other than the attachment to the uterus. The uteroovarian pedicles were then divided using a LigaSure device. The broad ligament was then divided down to the level of the round ligament on both sides. At this point the laparoscopic portion of the case was completed. The trocars were left in place, but the instruments were removed and gas turned off. A sterile drape was used to cover the abdomen. Attention was then turned to the vaginal portion of the case. The Zumi uterine manipulator was removed and the single toothed tenaculum repositioned on the cervix. The cervical mucosal was then incised circumferentially using Bovie cautery and a knife. The posterior cul de sac was entered by sharp dissection with Childress scissors and a weighted speculum was placed into the posterior cul se sac. Dissection then was initiated at the anterior cervix to enter the anterior cul se sac. The uterosacral ligaments were clamped bilaterally with curved Raji clamps and the pedicles divided and suture ligated and tagged for later identification. Next the cardinal ligament was clamped bilaterally and divided and suture ligated. Adequate hemostasis was noted. The anterior cul de sac peritoneum was then entered by sharp dissection and a narrow Stefanie retractor was placed into the anterior cul de sac to retract the bladder out of harm's way for the remainder of the case. The uterine arteries were clamped bilaterally , divided and suture ligated. Dissection then continued along each side of the uterus. Each pedicle was secured with a Raji clamp, divided and suture ligated until ultimately the uterine fundus was reached. The uterus and attached fallopian tubes were surgically amputated and set aside. The superior pedicles were dry as these had been divided during the laparoscopic portion of the case. There was bleeding noted along the posterior vaginal cuff and along the anterior vaginal cuff . The peritoneum was then closed with a running purse string suture of 1 Vicryl, incorporating the uterosacral ligament tags. The vaginal cuff was then closed with a series of figure of eight and interrupted stitches of 1 Vicryl. Excellent hemostasis was noted. The Uterosacral ligament tags were cut. Excellent hemostasis was noted. The Almanzar had clear yellow urine A second look was performed with the laparoscope: excellent hemostasis was noted at all pedicles and at the vaginal cuff. Chela was sprayed along the cuff and pedicles for additional hemostasis. The pneumoperitoneum was reduced and all instruments and trocars were removed. The skin incisions were closed with 4-0 Monocryl in a subcuticular fashion. Sterile dressings were applied. The patient was returned to dorsal supine position and awakened from general anesthesia. She was then transferred to the recovery room bed in stable condition after tolerating the procedure well. Sponge, lap, needle and instrument counts correct times two. Medications given preop and intraoperatively included: Cefotetan IV was given repairer engine production to the operating room , Marcaine with epinephrine was used as a subcutaneous injection at the trocar skin incision sites, and Toradol 30 mg IV x one was given. For a complete listing of medications given preop and intraoperatively, please see the anesthesia record. - Complications None - Admit VTE Documentation VTE Present on Admission: No VTE Mechan Device Prophylaxis: SCD's VTE Pharm Prophylaxis ordered?: Yes
--- NOTE | 2018-12-24 15:42 | OP.PCM_ITS ---
Report of Operation Date of Procedure: 12/24/18 Pre-Operative Diagnosis: Excessive And Frequent Menstruation With Irregular Cycle. Chronic pelvic pain, dyspareunia. Post-Operative Diagnosis: Same Surgery/Procedure Performed:: Laparoscopic assisted vaginal hysterectomy, bilateral salpingectomy Description of Surgical Findings:: Findings: On exam under anesthesia, the cervix has mild prolapse and is parous appearing. At Laparoscopy: the uterus is normal appearing. There are no significant adhesions in the pelvis-- filmy adhesions between bowel and pelvic/abdominal side wall . No evidence of endometriosis. Gross inspection of the bowel and omentum, liver edge and gallbladder are WNL. There are normal appearing fallopian tubes and ovaries bilaterally, with a follicular cyst on the Left ovary. chairman: Alejandrina - She Chang RN Second assist chairman: Ivis Swartz chairman: Charlene Type of Anesthesia:: General Anesthesiologist: Power Greer Specimen's removed: Uterus and cervix. Bilateral fallopian tubes Drains: Almanzar 280 + cc Estimated Blood Loss (mL): 100 cc Fluids Replaced: LR Description of Procedure: Narrative account: After the risks, benefits and alternatives of the procedure were reviewed with the patient , informed consent was obtained. The patient was taken to the Operating room with an IV running . She was positioned in the dorsal supine position on the operating table and given general anesthesia. Once asleep she was repositioned to the dorsal lithotomy position with the arms tucked at the sides and prepped and draped in the usual sterile fashion. A Almanzar catheter was inserted to drain the bladder and left open to drain in the drape. The weighted speculum was placed into the vagina and a single tooth tenaculum was placed at the cervix. A Zumi uterine manipulator was inserted into the cervix and the balloon was inflated. The speculum was removed. Attention was then turned to the anterior abdominal wall. the grain elevator operator's gloved were changed and skin incisions were created at the infraumbilical and suprapubic skin and at a point approximately prison between the suprapubic and infraumbilical skin inc isions. Local anesthesia was used to infiltrate the skin where the trocar incision sites were created. A transverse 5 mm infraumbilical skin incision , a transverse 5 mm suprapubic incision and an transverse 5 mm midline incision were created. A Veress needle was inserted in to the peritoneal cavity at the infraumbilical skin incision while maintaining upward traction of the anterior abdominal wall at the umbilicus. There was free drop of saline, free flow of CO2 and low opening pressure noted. Once the intraabdominal pressure had reached approximately 15 mm HG, the Veress needle was removed and a bladeless 5 mm trocar was inserted into the peritoneal cavity. Correct placement was confirmed using the laparoscope. Under direct visualization the other two 5 mm bladeless trocars were inserted into the peritoneal cavity. The fallopian tubes were retracted medially and using a LigaSure device the fallopian tube was divided from the ovary and the mesosalpinx, leaving the fallopian tube free at each side of the uterus other than the attachment to the uterus. The uteroovarian pedicles were then divided using a LigaSure device. The broad ligament was then divided down to the level of the round ligament on both sides. At this point the laparoscopic portion of the case was completed. The trocars were left in place, but the instruments were removed and gas turned off. A sterile drape was used to cover the abdomen. Attention was then turned to the vaginal portion of the case. The Zumi uterine manipulator was removed and the single toothed tenaculum repositioned on the cervix. The cervical mucosal was then incised circumferentially using Bovie cautery and a knife. The posterior cul de sac was entered by sharp dissection with Childress scissors and a weighted speculum was placed into the posterior cul se sac. Dissection then was initiated at the anterior cervix to enter the anterior cul se sac. The uterosacral ligaments were clamped bilaterally with curved Raji clamps and the pedicles divided and suture ligated and tagged for later identification. Next the cardinal ligament was clamped bilaterally and divided and suture ligated. Adequate hemostasis was noted. The anterior cul de sac peritoneum was then entered by sharp dissection and a narrow Stefanie retractor was placed into the anterior cul de sac to retract the bladder out of harm's way for the remainder of the case. The uterine arteries were clamped bilaterally , divided and suture ligated. Dissection then continued along each side of the uterus. Each pedicle was secured with a Raji clamp, divided and suture ligated until ultimately the uterine fundus was reached. The uterus and attached fallopian tubes were surgically amputated and set aside. The superior pedicles were dry as these had been divided during the laparoscopic portion of the case. There was bleeding noted along the posterior vaginal cuff and along the anterior vaginal cuff . The peritoneum was then closed with a running purse string suture of 1 Vicryl, incorporating the uterosacral ligament tags. The vaginal cuff was then closed with a series of figure of eight and interrupted stitches of 1 Vicryl. Excellent hemostasis was noted. The Uterosacral ligament tags were cut. Excellent hemostasis was noted. The Almanzar had clear yellow urine A second look was performed with the laparoscope: excellent hemostasis was noted at all pedicles and at the vaginal cuff. Chela was sprayed along the cuff and pedicles for additional hemostasis. The pneumoperitoneum was reduced and all instruments and trocars were removed. The skin incisions were closed with 4-0 Monocryl in a subcuticular fashion. Sterile dressings were applied. The patient was returned to dorsal supine position and awakened from general anesthesia. She was then transferred to the recovery room bed in stable condition after tolerating the procedure well. Sponge, lap, needle and instrument counts correct times two. Medications given preop and intraoperatively included: Cefotetan IV was given education diagnostician to the operating room , Marcaine with epinephrine was used as a subcutaneous injection at the trocar skin incision sites, and Toradol 30 mg IV x one was given. For a complete listing of medications given preop and intraoperatively, please see the anesthesia record. - Complications None - Admit VTE Documentation VTE Present on Admission: No VTE Mechan Device Prophylaxis: SCD's VTE Pharm Prophylaxis ordered?: Yes
[2018-12-24] MEDS: Lactated Ringers 1,000 ML 125 ML IV ×2 (16:09→23:08)
[2018-12-24] MEDS: Acetaminophen 500 MG Tablet 1000 MG PO (18:46)
[2018-12-24] MEDS: oxyCODONE 5 MG Tablet PO (18:46)
[2018-12-24] MEDS: Ketorolac 30 MG/ML Syringe IV (20:37)
[2018-12-24] MEDS: Docusate Sodium 100 MG Capsule PO (20:37)
--- NOTE | 2018-12-24 20:57 | PCM.PROGNOTE ---
Subjective: Day of Surgery Doing OK. Pain control better now. Initially uncomfortable. States tired, thirsty. K pad in use - Physical Exam General: Alert, Oriented x3, Cooperative, No apparent distress HEENT: Atraumatic Abdomen: Soft Skin: Incision - L/S incisions with op sites CDI Psych/Mental Status: Normal Affect Vital Signs Temp Pulse Resp BP Pulse Ox 97.8 F 71 17 105/71 99 12/24/18 19:40 12/24/18 19:40 12/24/18 19:40 12/24/18 19:40 12/24/18 19:40 Oxygen Delivery Method Room Air Weight: 69.2 kg Body Mass Index (BMI) 23.8 Intake and Output for Last 24 Hours 12/22/18 12/23/18 12/24/18 23:59 23:59 23:59 Intake Total 1999 / 1999 Output Total 175 / 175 Balance 1825 / 1825 Laboratory Tests Past 24 Hrs 12/24/18 12:18 Urine Test Negative Medical Necessity - Tobacco Use Smoking Status: Never smoker Tobacco Use: Non-smoker Assessment/Plan Day of surgery LAVH, Bilateral salpingectomy Stable postop Continue care.
[2018-12-25] MEDS: oxyCODONE 5 MG Tablet PO ×2 (02:37→10:03)
[2018-12-25] MEDS: Ketorolac 30 MG/ML Syringe IV (03:20)
[2018-12-25 03:24] VITALS: BP 101/63; PULSE 83; RESP 17; TEMP 37.1; O2SAT 97
--- NOTE | 2018-12-25 04:53 | PCM.PROGNOTE ---
Subjective: POD#1 LAVH, bilateral salpingectomy Doing well No concerns voiced. Pain minimal. - Physical Exam General: Alert, Oriented x3, Cooperative, No apparent distress HEENT: Atraumatic Neck: Supple Abdomen: Soft, Non Tender Skin: Incision - CDI. Op sites in place. Minimal vaginal bleeding Neurological: Cranial nerves II-XII grossly intact Vital Signs Temp Pulse Resp BP Pulse Ox 98.8 F 83 17 101/63 97 12/25/18 03:24 12/25/18 03:24 12/25/18 03:24 12/25/18 03:24 12/25/18 03:24 Oxygen Delivery Method Room Air Weight: 69.2 kg Body Mass Index (BMI) 23.8 Intake and Output for Last 24 Hours 12/23/12/24/18 12/25/18 23:59 23:59 23:59 Intake Total 3145 / 3145 Output Total 625 / 625 Balance 2520 / 2520 Laboratory Tests Past 24 Hrs 12/24/18 12:18 Urine Test Negative Medical Necessity - Tobacco Use Smoking Status: Never smoker Tobacco Use: Non-smoker Assessment/Plan POD#1 LAVH, Bilateral salpingectomy Stable postop Remove Almanzar for voiding trial. Dsichg home today.
[2018-12-25 05:50] LABS: Hemoglobin 10.3 g/dl (12.0-15.0); Mean Corp Hgb Conc 33.2 g/gl (32-36); Mean Corpuscular Hgb 28.9 pg (27.0-32.0); Mean Corpuscular Volume 86.8 fL (81-99); Mean Platelet Vol. 9.6 fl (6.2-12.0); Platelet Count 216 K/mm3 (150-450); RBC Distribution Width CV 13.3 % (11.6-14.6); RBC Distribution Width SD 40.7 fl (35.1-43.9); Red Blood Count 3.57 M/mm3 (4.2-5.4); White Blood Count 6.7 K/mm3 (4.4-11.0)
[2018-12-25 05:59] LABS: Creatinine, Serum 0.58 mg/dL (0.55-1.02); EST Glomerular Filtration Rate 119 mL/min (>60); Est Glom Filt Rate - Afr Amer 144 mL/min (>60); Estimated Creatinine Clearance 120.37 ml/min; Scan Indicated on CBC? Y/N NO
[2018-12-25 07:50] VITALS: O2SAT 97
[2018-12-25 08:03] VITALS: BP 99/57; PULSE 84; RESP 18; TEMP 36.7; O2SAT 96
[2018-12-25] MEDS: Ketorolac 10 MG Tablet PO (10:02)
[2018-12-25] MEDS: Iron Polysaccharide Complex 150 MG CAPSULE PO (10:02)
[2018-12-25] MEDS: Enoxaparin 40 MG/0.4 ML Syringe SC (10:03)
[2018-12-25] MEDS: Polyethylene Glycol 3350 17 GM PACKET PO (10:03)
[2018-12-25] MEDS: Docusate Sodium 100 MG Capsule PO (10:08)
[2018-12-25] MEDS: Acetaminophen 500 MG Tablet 1000 MG PO (11:01)
[2018-12-25 13:09] VITALS: BP 103/60; PULSE 87; RESP 18; TEMP 36.6; O2SAT 98
== END 2018-12-25 14:08 | disposition home or self-care (01) ==
LOC: SDC 12:10 → AC 12:10 → MS3 16:28
PROVIDERS: Anesthesiology; Family Provider Family Medicine; PCP Family Medicine; Referring Provider Obstetrics & Gynecology; Visit Provider Obstetrics & Gynecology
PROC: 0UT9FZZ Resection of Uterus, Via Natural or Artificial Opening With Percutaneous Endoscopic Assistance (ICD-10-PCS; CPT 58552; principal; 2018-12-24 13:40)
DX: N92.1 Excessive and frequent menstruation with irregular cycle (principal); N94.12 Deep dyspareunia; K58.9 Irritable bowel syndrome, unspecified; K21.9 Gastro-esophageal reflux disease without esophagitis; G25.81 Restless legs syndrome; M19.90 Unspecified osteoarthritis, unspecified site
CPT/HCPCS: 00940; 58552; 36415; 81025; 82565; 85027; 85610; 85730; 86850; 86900; 88307; J7120; J2405

== ENCOUNTER → 2023-09-19 | Outpatient (CLI) | payer MEDICAID, SELFPAY ==
--- NOTE | 2023-09-19 10:11 | BI_ITS ---
MAMMOGRAPHY - BILATERAL SCREENING REASON FOR EXAM: Female, 48 years old. Routine annual screening examination. PERTINENT HISTORY: Non-contributory. TECHNIQUE: Digital bilateral breast yolette (3D mammographic acquisition) in the CC and MLO projections. 2-D mediolateral oblique (MLO) and craniocaudad (CC) views of both breasts were obtained. CAD: Full Field Digital Mammography with Computer Added Detection was performed. COMPARISON: Comparison is made with prior study of October 21, 2018. FINDINGS: Breast Composition: There are scattered areas of fibroglandular density. There are no dominant masses or suspicious calcifications. Stable small benign-appearing bilateral axillary lymph nodes. No other significant abnormalities are identified. There has been no significant change since the prior study. BI/SCRN MAMM (CAD)W/YOLETTE BILAT IMPRESSION: Stable bilateral screening mammogram. Yearly follow-up mammogram recommended. (A) ASSESSMENT CATEGORY: BIRADS Category 2: Benign. A letter regarding these results will be sent to the patient by the facility within 30 days. Approximately 10% of breast cancers are not detected by mammography. A normal mammogram should not delay biopsy of a clinically suspicious abnormality. [id number] Electronically Signed: Jabari Hutchison MD at 11:11 EST ,
== END | disposition home or self-care (01) ==
LOC: OPBI 10:08
PROVIDERS: PCP Family Medicine; Referring Provider Family Medicine; Visit Provider Family Medicine
DX: Z12.31 Encounter for screening mammogram for malignant neoplasm of breast (principal)
CPT/HCPCS: 77063; 77067

== ENCOUNTER 2024-01-06 10:30 | Emergency (ER) | payer BC, SELFPAY ==
[2024-01-06 10:32] VITALS: BP 113/84; PULSE 79; RESP 16; TEMP 36.3; O2SAT 99
[2024-01-06 10:34] VITALS: BMI 25.4
--- NOTE | 2024-01-06 10:40 | EDS_ITS ---
HPI History of Present Illness HPI Narrative: Patient presents with pain in her right second and third toes that began today. Patient states he dropped a cookie sheet onto her right foot. Patient states the end of the cookie she did hit her second and third toes. Patient states her pain is aching and throbbing. Patient states it is worse with weightbearing and movement. Patient states it is better with rest. Patient denies any paresthesias or weakness. Patient denies any other injuries. Chief Complaint: Lower Extremity Injury Informant: patient Occured/Mechanism Mechanism/Context: Yes blunt trauma Onset/Context/Timing Onset: Today Context: Sudden Onset Timing: Continuous Quality of Pain: Aching and Throbbing Location: Right second and third toes Worsened by: Weightbearing and movement Relieved by: Rest Associated Symptoms Associated Symptoms: Negative for Parasthesia, Weakness or Loss of Funtion [facility] Medical History (Updated 01/06/24 @ 11:[address] Luis A Freedman, DO) Fibromyalgia Fibromyalgia Depression Anxiety COVID-19 Home Medications ?Medication ?Instructions ?Recorded ?Last Taken ?Type L.acidoph, paracasei,B. lactis 10 1 ea PO DAILY 12/17/18 Unknown History billion cell capsule cholecalciferol (vitamin D3) 250 10,000 unit PO QWEEK 12/17/18 Unknown History mcg (10,000 unit) tablet iron 150 mg-C 60 mg-B12 25 1 ea PO DAILY 12/17/18 Unknown History mcg-folic acid 1 [id number].acid capsule (Ferrex) docusate sodium 100 mg capsule 100 mg PO BID #30 caps 12/24/18 Unknown Rx (DOK) polyethylene glycol 3350 17 gram 17 g PO DAILY PRN Constipation #14 12/24/18 Unknown Rx oral powder packet packets desvenlafaxine succinate 25 mg 25 mg PO DAILY 08/24/21 Unknown History tablet,extended release 24 hr (Pristiq) dexamethasone 4 mg tablet 4 mg PO DAILY #5 tabs 08/24/21 Unknown Rx (Decadron) montelukast 10 mg tablet 10 mg PO DAILY 08/24/21 Unknown History naproxen 500 mg tablet 500 mg PO BID PRN #20 tabs 01/06/24 Unknown Rx Allergy/AdvReac Type Severity Reaction Status Date / Time No Known Allergies Allergy Verified 01/06/24 10:31 Surgical History H/O: hysterectomy Social History Smoking Status: Never smoker ROS ROS ED Constitutional Constitutional ED: Denies chills or fever(s) Eyes Eyes: Denies blurry vision or change in vision ENT ENT ED: Denies rhinorrhea or sore throat Cardiovascular Cardiovascular: Denies chest pain or palpitations Respiratory/Chest Respiratory/Chest: Denies cough or dyspnea Gastrointestinal Gastrointestinal: Denies nausea or vomiting Genitourinary Genitourinary ED: Denies dysuria or hematuria Musculoskeletal Musculoskeletal: Denies back pain or neck pain Integumentary Denies abscess or rash Neurologic Neurologic: Denies headache(s) or weakness Allergic/Immunologic Allergic/Immunologic ED: Denies mouth swelling or urticaria EXAM Physical Exam Const Vital Signs: 01/06/24 10:32 Temperature 97.4 F L Temperature Source Temporal Pulse Rate 79 Respiratory Rate 16 Blood Pressure 113/84 H Blood Pressure Mean 93 Pulse Ox 99 Oxygen Delivery Method Room Air Positive well nourished and well developed General Appearance ED: well developed and NAD HEENT Reports moist mucous membranes normocephalic and atraumatic Neck full ROM and supple Extremity Extremity Narrative: There is tenderness, edema, and ecchymosis over the right second and third toes. There is no obvious deformity noted. Range of motion was limited in all motions of the second and third toe secondary to pain. Pedal pulses are equal bilateral. Capillary refill was less than 2 seconds in all digits. Strength is 5/5 bilaterally in the lower extremities. There are no sensory deficits noted. Neuro oriented x3, CN's II-XII intact bilaterally, moves all extremities and no sensory deficits noted Sensorium / Orientation: alert Motor Exam: strength 5/5 throughout Psych mental status grossly normal Skin no wounds MDM MDM MDM Narrative Medical decision making narrative: Differential diagnosis includes fracture, contusion, and sprain. X-rays of the right foot will be obtained to assess for fracture. Radiography Diagnostic Testing: Clinical Impression(s) from Imaging Studies Foot X-Ray 01/06/24 11:25 IMPRESSION: Normal x-ray examination of the right foot. Electronically Signed: Valentin Cleveland MD at 11:36 EDT , X-rays of the right foot were obtained. There are 3 views. On my independent interpretation, there is no acute fracture or dislocation noted. There is no soft tissue swelling noted. Radiologist also interpreted the x-rays and agrees. Treatment and Re-Evaluation Narrative: Patient was given a dose of Nazlini here. Patient was advised of her findings. Patient was given a postop shoe. Patient was given a prescription for Naprosyn. Patient was instructed to ice and elevate the right foot. Patient was instructed to follow-up with her primary care physician in 5 to 7 days. Patient understood and was agreeable with the plan. All questions were answered. Discharge Plan Triage Chief Complaint: Lower Extremity Injury ED Provider: Luis A Freedman Dx/Rx/DC Orders Clinical Impression: Contusion of lesser toe of right foot without damage to nail, History of fibromyalgia Instructions: ED Foot Contusion Prescriptions: New naproxen 500 mg tablet 500 mg PO BID PRN Qty: 20 0RF Discontinued naproxen 250 MG tablet 250 - 500 mg PO TID PRN PRN (Reason: Mild-Mod Pain (-12/26)) Qty: 30 0RF Rx Instructions: 1-2 po q 8 hr prn pain No Action desvenlafaxine succinate [Pristiq] 25 mg tablet extended release 24 hr 25 mg PO DAILY montelukast 10 mg tablet 10 mg PO DAILY dexamethasone [Decadron] 4 mg tablet 4 mg PO DAILY Qty: 5 0RF iron aspgly,[id number] [Ferrex 150 Forte Plus] 1 EACH capsule 1 ea PO DAILY cholecalciferol (vitamin D3) 10,000 UNIT tablet 10,000 unit PO QWEEK L.acidoph, paracasei,B. lactis 1 EACH capsule 1 ea PO DAILY polyethylene glycol 3350 17 GM packet 17 g PO DAILY PRN (Reason: Constipation) Qty: 14 0RF docusate sodium [DOK] 100 MG capsule 100 mg PO BID Qty: 30 0RF Rx Instructions: 1 po bid to prevent constipation. Primary Care Provider: Yaa Johnson Referrals: Yaa Johnson MD [[facility]] - 5-7 Days Print Language: Yi Disposition Disposition: Home, Self Care
[2024-01-06] MEDS: HYDROcodone Bitartrate/Apap 5/325 Tablet PO (11:07)
--- NOTE | 2024-01-06 11:25 | RAD_ITS ---
STUDY: X-RAY - RIGHT FOOT CLINICAL: Female, 49 years old. Injury / Pain. TECHNIQUE: 3 views of the right foot. COMPARISON: None. FINDINGS: Normal talus, calcaneus, and tarsal bones. Normal visualized subtalar, talonavicular, calcaneocuboid, tarsal and tarsometatarsal articulations. Normal metatarsi. Normal metatarsophalangeal joint of the great toe. Normal tibial and fibular sesamoid bones. Normal interphalangeal joint of the great toe. Normal phalanges of the great toe. Normal second through fifth metatarsophalangeal joints. Normal interphalangeal joints and phalanges of the lesser toes. The soft tissue structures are unremarkable. There is no demonstrated fracture. RAD/Foot min 3 Views IMPRESSION: Normal x-ray examination of the right foot. Electronically Signed: Valentin Cleveland MD at 11:36 EDT ,
[2024-01-06 12:20] VITALS: BP 114/87; PULSE 85; RESP 17; TEMP 36.8; O2SAT 97
== END 2024-01-06 12:20 | disposition home or self-care (01) ==
PROVIDERS: Emergency Provider Emergency Medicine; PCP Family Medicine; Visit Provider Emergency Medicine
DX: S90.121A Contusion of right lesser toe(s) without damage to nail, initial encounter (principal); W20.8XXA Other cause of strike by thrown, projected or falling object, initial encounter; M79.7 Fibromyalgia; Z79.899 Other long term (current) drug therapy
CPT/HCPCS: 73630; 99282

== ENCOUNTER 2024-09-01 16:15 | Emergency (ER) | payer BC, SELFPAY ==
[2024-09-01 16:15] VITALS: BP 136/75; PULSE 98; RESP 16; TEMP 36.8; O2SAT 99; BMI 27.6
--- NOTE | 2024-09-01 18:20 | RAD_ITS ---
INDICATION: Thumb laceration EXAMINATION/TECHNIQUE: X-RAY - LEFT XR Hand Min 3 Views 3 VIEWS COMPARISON: FINDINGS: SOFT TISSUES: No soft tissue swelling or gas. No radiopaque foreign body. BONES/JOINTS: No acute fracture or subluxation.. Normal alignment. Preservation of the joint space.. No sclerotic or destructive changes observed. RAD/Hand Min 3 Views IMPRESSION: Negative. Electronically Signed: Remigio Olvera DO at 19:04 EST ,
--- NOTE | 2024-09-01 18:36 | EDS_ITS ---
HPI History of Present Illness Chief Complaint: Laceration Narrative Narrative: Patient is a 49-year-old female with a past medical history anxiety, depression who presented to the emergency department with a chief complaint of left thumb laceration. Patient states that she was trying to take a safety cover off a serrated steam box tender when this slipped cutting her left finger. Patient states that she is unsure when her last tetanus shot was. [facility] Medical History Fibromyalgia Fibromyalgia Depression Anxiety COVID-19 Home Medications ?Medication ?Instructions ?Recorded ?Last Taken ?Type L.acidoph,paracasei,B.animalis 10 1 ea PO DAILY 12/17/18 Unknown History billion cell capsule cholecalciferol (vitamin D3) 250 10,000 unit PO QWEEK 12/17/18 Unknown History mcg (10,000 unit) tablet iron 150 mg-C 60 mg-B12 25 1 ea PO DAILY 12/17/18 Unknown History mcg-folic acid 1 [id number].acid capsule (Ferrex) docusate sodium 100 mg capsule 100 mg PO BID #30 caps 12/24/18 Unknown Rx (DOK) polyethylene glycol 3350 17 gram 17 g PO DAILY PRN Constipation #14 12/24/18 Unknown Rx oral powder packet packets desvenlafaxine succinate 25 mg 25 mg PO DAILY 08/24/21 Unknown History tablet,extended release 24 hr (Pristiq) dexamethasone 4 mg tablet 4 mg PO DAILY #5 tabs 08/24/21 Unknown Rx (Decadron) montelukast 10 mg tablet 10 mg PO DAILY 08/24/21 Unknown History naproxen 500 mg tablet 500 mg PO BID PRN #20 tabs 01/06/24 Unknown Rx Allergy/AdvReac Type Severity Reaction Status Date / Time No Known Allergies Allergy Verified 09/01/24 16:17 Surgical History H/O: hysterectomy Social History Smoking Status: Never smoker ROS ROS ED ROS Narrative Neurological: Denies numbness, weakness, tingling Musculoskeletal: Complains of left thumb pain Skin: Complains of left thumb laceration EXAM Physical Exam Narrative Exam Narrative: General: Patient lying in bed rest comfortably did not appear to be in acute distress Head: Atraumatic, normocephalic Eyes: PERRL bilaterally, EOMI bilateral, no conjunctival injection noted Neck: Soft, supple, trachea midline Extremities: Radial pulses +2/4 in the bilateral per extremities, +5/5 strength noted in the bilateral upper and lower extremities, patient was able to give me the okay sign, thumbs up sign, oppose her thumbs to her pinky is bilaterally thigh difficulty. Patient able to flex and extend all digits without difficulty no concern for tendon injury Neurological: Patient following commands knew that she was at [facility] year is 2024. Sensation grossly intact in the median, ulnar and radial nerve distributions bilaterally Skin: Patient has a simple 2.5 cm laceration on the volar aspect of her left thumb. 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 On the differential diagnose includes Melamin to left thumb laceration, retained foreign body. Once the x-rays obtained reviewed she will be reevaluated. Patient tetanus shot will be updated. Patient x-ray reviewed by myself by radiology was negative. Patient had laceration repaired here in the emergency department tolerated this well. She was advised to have the sutures removed in 7 to 10 days. She is encouraged watch for signs infection such as purulent drainage or surrounding redness or other concerns she should return. Patient was advised to not soak the thumb keep the area dry and clean and she can let warm soapy water run over this. She is agreeable this plan she like to go home this point time all question concerns answered she is discharged home in stable condition. Procedure note Procedure name: Laceration repair Indication: Reduce risk of infection Location: Volar aspect of her left thumb 2-1/2 cm in length simple linear Preprocedure diagnosis: Laceration Postprocedure diagnosis: Repaired laceration Informed consent was obtained prior to procedure started. Procedure: The appropriate timeout was taken. The area was prepped and draped in usual sterile fashion. Local anesthesia was achieved using 3 cc of lidocaine 1% without epinephrine. Wound was copiously irrigated. 5 4-0 Ethilon interrupted sutures were placed. Estimated blood loss was less than 0.5 mL. Dressing was applied to the area and anticipatory guidance, as well as standard postprocedure care was explained. Return precautions are given. Patient tolerated procedure well without any complications. Follow-up visit for suture removal and evaluation of laceration. Radiography Diagnostic Testing: Clinical Impression(s) from Imaging Studies Hand X-Ray 09/01/24 18:20 IMPRESSION: Negative. Electronically Signed: Remigio Olvera DO at 19:04 EST Reading Location ID and State: [facility] / [place] Tel [phone], Service support , Discharge Plan Triage Chief Complaint: Laceration ED Provider: Octavio Alicea Dx/Rx/DC Orders Clinical Impression: Laceration of thumb Prescriptions: No Action desvenlafaxine succinate [Pristiq] 25 mg tablet extended release 24 hr 25 mg PO DAILY montelukast 10 mg tablet 10 mg PO DAILY dexamethasone [Decadron] 4 mg tablet 4 mg PO DAILY Qty: 5 0RF iron [id number] [Ferrex 150 Forte Plus] 1 EACH capsule 1 ea PO DAILY cholecalciferol (vitamin D3) 10,000 UNIT tablet 10,000 unit PO QWEEK L.acidoph,paracasei,B.animalis 1 EACH capsule 1 ea PO DAILY polyethylene glycol 3350 17 GM packet 17 g PO DAILY PRN (Reason: Constipation) Qty: 14 0RF docusate sodium [DOK] 100 MG capsule 100 mg PO BID Qty: 30 0RF Rx Instructions: 1 po bid to prevent constipation. naproxen 500 mg tablet 500 mg PO BID PRN Qty: 20 0RF Primary Care Provider: Yaa Johnson Referrals: Yaa Johnson MD [Primary Care Provider] - Activity Restrictions/Additional Instructions: Keep the area dry and clean. Do not soak the thumb. Watch out for signs infection such as surrounding redness, purulent drainage you should be seen by your doctor or come back to the emergency department. Return with worsening symptoms or other concerns. Have your sutures removed in approximately 7 to 10 days. Use Tylenol and ibuprofen for pain control. Print Language: Dutch Disposition Disposition: Home, Self Care
[2024-09-01] MEDS: Diphth,Pertuss(Acell),Tet Vac 0.5 ML Vial IM (18:53)
[2024-09-01] MEDS: Lidocaine 1% (20 ml mdv) 20 ML Vial 10 ML INFILT (19:21)
== END 2024-09-01 20:02 | disposition home or self-care (01) ==
PROVIDERS: Emergency Provider Emergency Medicine; PCP Family Medicine; Visit Provider Emergency Medicine
DX: S61.012A Laceration without foreign body of left thumb without damage to nail, initial encounter (principal); W26.8XXA Contact with other sharp object(s), not elsewhere classified, initial encounter; Z23 Encounter for immunization; Z79.1 Long term (current) use of non-steroidal anti-inflammatories (NSAID); Z79.899 Other long term (current) drug therapy
CPT/HCPCS: 12001; 73130; 90471; 90715; 99283